=== PATIENT | female | born 1945 | race Caucasian/White ===

== ENCOUNTER 2016-10-13 14:26 | Inpatient (IN) | payer OTHER, MEDICARE ==
[~2016-10-13] VITALS: Ht 165.1 cm; Wt 105.9 kg
--- NOTE | 2016-10-20 14:39 | MH ---
cc: Constanza DERAS M.D. DATE OF ADMISSION: 10/25/2016 ADMISSION DIAGNOSIS Osteoarthritic degeneration right knee, now being admitted for right total knee arthroplasty. HISTORY OF PRESENT ILLNESS This pleasant 71-year-old diabetic female is being admitted today for a right total knee arthroplasty due to severe painful osteoarthritic degeneration, right knee. OTHER PAST HISTORY Other past history besides the arthritis, she has a history of: 1. Leukemia in the past. 2. Depression. 3. Diabetes. 4. Hypertension. 5. Low back pain. 6. Heart problems. 7. Thyroid issues. 8. She does have a coronary stent in and 9. She has vascular stent in her leg. CURRENT MEDICATIONS Include: 1. Plavix which she stopped before surgery and is now only on 81 mg of aspirin a day. 2. She also takes clonidine 3. Hydrocodone for pain. 4. Levothyroxine. 5. Lisinopril. 6. Metformin 500 mg every 24 hours. 7. Metoprolol tartrate. 8. Novolog 100 units per mL subcutaneous insulin. 9. Potassium chloride. 10. Pravastatin. 11. Sertraline. 12. Toujeo SoloStar 300 units per mL subcutaneous insulin. PAST SURGICAL HISTORY Previous surgeries include both hip surgeries and cataract surgery. REVIEW OF SYSTEMS Noncontributory. FAMILY HISTORY Noncontributory. SOCIAL HISTORY She does not smoke or drink. ALLERGIES No known allergies. PHYSICAL EXAMINATION GENERAL: We find a 71-year-old female, well-developed, well-nourished, oriented x3, complaining of pain in her right knee. VITAL SIGNS: Blood pressure 118/72, pulse 55 and regular, respirations 16, temperature 98.4, pulse oximetry 97% on room air. HEENT: Eyes PERRLA, EOMI. Ears, nose, mouth clear. NECK: Supple. LUNGS: Clear. HEART: Regular rate. ABDOMEN: Soft. Positive bowel sounds. Nontender. EXTREMITIES: Reveal her right knee to be tender with crepitance throughout range of motion. Neurovascularly intact to her toes. IMPRESSION AT THIS TIME Severe painful osteoarthritic degeneration, right knee. PLAN Admission for right total knee arthroplasty today. The patient given a prescription for postoperative pain control, plans on going to rehab after surgery and we plan on not using a tourniquet as the patient has a stent in her right leg. J. MD AYLA Singh/TLL /2:06 PM /2:18 PM
[2016-10-21] MEDS ORDERED: CLON0.1T PO (14:36)
[2016-10-21] MEDS ORDERED: PLAV75TA29 PO (14:36)
[2016-10-21] MEDS ORDERED: ASPI1TAB69 PO (14:36)
[2016-10-21] MEDS ORDERED: MULTCAP PO (14:53)
[2016-10-21] MEDS ORDERED: LEVO-154 PO (14:53)
[2016-10-21] MEDS ORDERED: POTA10TA8 PO (14:53)
[2016-10-21] MEDS ORDERED: OMEG5CAP PO (14:53)
[2016-10-21] MEDS ORDERED: PANT40TA3 PO (14:53)
[2016-10-21] MEDS ORDERED: METF1000 PO (14:53)
[2016-10-21] MEDS ORDERED: LISI20TA PO (14:53)
[2016-10-21] MEDS ORDERED: VITA100018 PO (14:53)
[2016-10-21] MEDS ORDERED: BIOT1000 PO (14:53)
[2016-10-21] MEDS ORDERED: METO50TA PO (14:53)
[2016-10-21] MEDS ORDERED: INSU1.2I SQ (14:53)
[2016-10-21] MEDS ORDERED: HUMA100I3 SQ ×3 (14:53→15:29)
[2016-10-21] MEDS ORDERED: PRAV40TA2 PO (14:53)
[2016-10-21] MEDS ORDERED: SERT-132 PO (14:53)
[2016-10-21] MEDS ORDERED: VITA10007 PO (14:53)
[2016-10-25] MEDS ORDERED: INSULIN HUMAN REGULAR 1,000 UNITS/10 ML VIAL SQ PRN (06:15)
[2016-10-25] MEDS: CHLORHEXIDINE GLUCONATE 4% SOLN 120 ML BTL TOP SCH (06:15)
[2016-10-25] MEDS ORDERED: METOPROLOL TARTRATE 25 MG TAB PO PRN (06:15)
[2016-10-25] MEDS ORDERED: VANCOMYCIN 1000 MG/NS 250 ML (for <70 kg) IV SCH ×2 (06:15)
[2016-10-25 06:46] VITALS: BP 189/85; PULSE 55; RESP 16; TEMP 98.9; O2SAT 95
[2016-10-25] MEDS ORDERED: ceFAZolin 2 GM PREMIX 50 ML IV SCH (07:00)
[2016-10-25] MEDS ORDERED: MIDAZOLAM HCL 5 MG/5 ML VIAL ONE (07:15)
[2016-10-25] MEDS ORDERED: BUPIVACAINE LIPOSO PF 1.3% INJ 20 ML, BUPIVACAINE PF 0.25% INJ 20 ML in SODIUM CHLORIDE... P-ARTICULR SCH (07:30)
[2016-10-25] MEDS ORDERED: BUPIVACAINE HCL PF 0.5% 30 ML VIAL NB ONE (07:49)
[2016-10-25] MEDS ORDERED: LACTATED RINGER'S 1000 ML IV SCH (08:00)
[2016-10-25] MEDS ORDERED: SODIUM CHLORID 0.9% 500 ML IV SCH (08:00)
[2016-10-25] MEDS ORDERED: TRANEXAMIC ACID INJ 906 MG in SODIUM CHLORIDE 0.9% INJ 100 ML IV SCH ×2 (08:00→11:00)
[2016-10-25] MEDS ORDERED: ACETAMINOPHEN 1000 MG/100 ML VIAL IV ONE (08:06)
[2016-10-25] MEDS ORDERED: FAMOTIDINE 20 MG/2 ML VIAL ONE (08:06)
[2016-10-25] MEDS ORDERED: ceFAZolin INJ 1,000 MG VIAL XX ONE (08:55)
[2016-10-25] MEDS ORDERED: NALOXONE HCL 0.4 MG/ML AMP IV PRN ×2 (10:45)
[2016-10-25] MEDS ORDERED: SODIUM CHLORIDE 0.9% FLUSH 5 ML FLUSH IVF PRN (10:45)
[2016-10-25] MEDS ORDERED: TRANEXAMIC ACID INJ 0 MG in SODIUM CHLORIDE 0.9% INJ 100 ML IV SCH (10:45)
[2016-10-25] MEDS ORDERED: diphenhydrAMINE HCL 50 MG/ML VIAL IV PRN (10:45)
[2016-10-25] MEDS ORDERED: Post-op Orders (for Pharmacy) MISC XX ONE (10:45)
[2016-10-25] MEDS ORDERED: MISC-163 (10:49)
[2016-10-25] MEDS ORDERED: WALKER WHEELS/F1 MIS (10:49)
[2016-10-25] MEDS ORDERED: CPMMACHINE (10:49)
[2016-10-25] MEDS ORDERED: fentaNYL CITRATE 250 MCG/5 ML AMP ONE (11:10)
[2016-10-25] MEDS ORDERED: *PROMETHAZINE 25 MG/ML VIAL PERIprocedural use ONLY ONE (11:13)
[2016-10-25] MEDS ORDERED: *morphine SULFATE 8 MG/ML PERIprocedure ONLY ONE (11:27)
[2016-10-25] MEDS ORDERED: DO NOT ADM ANY ANTICOAGULANT DRUGS XX PRN (11:30)
[2016-10-25] MEDS ORDERED: *ONDANSETRON 4 MG VIAL PERIprocedural Use ONLY ONE (11:34)
[2016-10-25] MEDS: MORPHINE SULFATE 30 MG/30 ML PCA IV SCH (11:36)
[2016-10-25] MEDS: LACTATED RINGER'S 1000 ML INJ 1,000 ML IV SCH ×2 (11:36→23:12)
--- NOTE | 2016-10-25 11:51 | RADRPT ---
EXAM DATE/TIME: 10/25/2016 11:20 [place] COMPARISON: No previous studies available for comparison. INDICATIONS : Post total right knee MEDICAL HISTORY : None. SURGICAL HISTORY : Total right knee ENCOUNTER: Initial ACUITY: 1 day PAIN SCORE: 9/10 LOCATION: Right knee FINDINGS: Two view examination of the right knee demonstrates postop changes following total knee replacement. Patellar, femoral and tibial components are well seated and appear satisfactorily aligned. There is no evidence of acute fracture. Endovascular stent is identified in the right superficial femoral artery. CONCLUSION: Satisfactory post operative appearance the right knee following total knee replacement. Denzel Wisdom MD on October 25, 2016 at 11:49 Board Certified Radiologist. This report was verified electronically.
[2016-10-25] MEDS ORDERED: DEXAMETHASONE SOD PHOS 4 MG/ML VIAL ONE (11:54)
[2016-10-25] MEDS ORDERED: ONDANSETRON HCL 4 MG/2 ML VIAL IV PUSH ONE (12:00)
[2016-10-25] MEDS ORDERED: ePHEDrine/NS 25 MG/5 ML SYR IV ONE (12:00)
[2016-10-25] MEDS ORDERED: PHENYLEPH/NS 1000 MCG/10 ML SYR IV ONE (12:00)
[2016-10-25] MEDS ORDERED: LACTATED RINGER'S 1000 ML INJ 1,000 ML IV ONE (12:00)
[2016-10-25] MEDS ORDERED: NEOSTIGMINE 3 MG/3 ML SYR IV ONE (12:00)
[2016-10-25] MEDS ORDERED: PROPOFOL 200 MG/20 ML AMP IV ONE (12:00)
[2016-10-25] MEDS ORDERED: SODIUM CHLORID 0.9% 500 ML INJ 500 ML IV ONE (12:00)
[2016-10-25 12:30] VITALS: BP 109/62; PULSE 55; RESP 16; TEMP 95.8; O2SAT 91
[2016-10-25] MEDS ORDERED: METOCLOPRAMIDE HCL 10 MG/2 ML VIAL IV ONE (12:30)
[2016-10-25] MEDS ORDERED: DEXAMETHASONE SOD PHOS 4 MG/ML VIAL IV ONE (12:30)
[2016-10-25] MEDS: POTASSIUM CHLORIDE 10 MEQ CONTROLLED RELEASE TAB PO SCH ×2 (13:00→16:25)
[2016-10-25] MEDS: PCA - TOTAL MG MORPHINE DELIVERED PER SHIFT SCH ×2 (14:00→22:00)
[2016-10-25] MEDS: ONDANSETRON HCL 4 MG/2 ML VIAL IVP PRN (14:26)
[2016-10-25] MEDS: ACETAMINOPHEN/HYDROcodone 325 MG/7.5 MG TAB PO PRN (14:26)
[2016-10-25] MEDS ORDERED: DEXTROSE 50% IN WATER 50 ML VIAL(D50) IV PUSH PRN (15:00)
[2016-10-25] MEDS ORDERED: GLUCAGON 1 MG/ML VIAL OTHER PRN (15:00)
--- NOTE | 2016-10-25 15:02 | EKG ---
Date Performed: 10/25/2016 Time Performed: 06:25:07 PTAGE: 71 years EKG: SINUS BRADYCARDIA LOW QRS VOLTAGE IN PRECORDIAL LEADS ST DEVIATION AND MODERATE T-WAVE ABNO RMALITY, CONSIDER ANTEROLATERAL ISCHEMIA ABNORMAL ECG Compared to prior tracing no significant change PREVIOUS TRACING : 08/25/2013 21.26 DOCTOR: Dorcas Stock Interpretating Date/Time 10/25/2016 14:54:41
--- NOTE | 2016-10-25 15:14 | PD.CONS ---
HPI Service [facility] Consult Requested By Dr. Woodall Reason for Consult medical management Primary Care Physician Sarah Grove Do, MD Diagnoses: History of Present Illness 71 y/o F with Pmhx of T2DM insulin dependent, CAD, and HTN who p/w severe osteoarthritis and had right total knee arthroplasty. [facility] consulted for medical management. Patient seen after surgery and is sitting up at bedside working with PT. Patient stated she is doing well and asking for a peanut butter and jelly sandwich from PT. Otherwise no complaints. Pain is controlled. Review of Systems Constitutional: DENIES: Diaphoretic episodes, Fatigue, Fever, Weight gain, Weight loss, Chills, Dizziness, Change in appetite, Night Sweats Endocrine: DENIES: Abnorml menstrual pattern, Heat/cold intolerance, Polydipsia , Polyuria, Polyphagia Eyes: DENIES: Blurred vision, Diplopia, Eye inflammation, Eye pain, Vision loss , Photosensitivity, Double Vision Ears, nose, mouth, throat: DENIES: Tinnitus, Hearing loss, Vertigo, Nasal discharge, Oral lesions, Throat pain, Hoarseness, Ear Pain, Running Nose, Epistaxis, Sinus Pain, Toothache, Odynophagia Respiratory: DENIES: Apneas, Cough, Snoring, Wheezing, Hemoptysis, Sputum production, Shortness of breath Cardiovascular: DENIES: Chest pain, Palpitations, Syncope, Dyspnea on Exertion , PND, Lower Extremity Edema, Orthopnea, Claudication Gastrointestinal: DENIES: Abdominal pain, Black stools, Bloody stools, Constipation, Diarrhea, Nausea, Vomiting, Difficulty Swallowing, Anorexia Genitourinary: DENIES: Abnormal vaginal bleeding, Dysmenorrhea, Dyspareunia, Sexual dysfunction, Urinary frequency, Urinary incontinence, Urgency, Hematuria , Dysuria, Nocturia, Vaginal discharge Musculoskeletal: DENIES: Joint pain, Muscle aches, Stiffness, Joint Swelling, Back pain, Neck pain Integumentary: DENIES: Abnormal pigmentation, Pruritus, Rash, Nail changes, Breast masses, Breast skin changes, Nipple discharge Hematologic/lymphatic: DENIES: Bruising, Lymphadenopathy Immunologic/allergic: DENIES: Eczema, Urticaria Neurologic: DENIES: Abnormal gait, Headache, Localized weakness, Paresthesias, Seizures, Speech Problems, Tremor, Poor Balance Psychiatric: DENIES: Anxiety, Confusion, Mood changes, Depression, Hallucinations, Agitation, Suicidal Ideation, Homicidal Ideation, Delusions Past Family Social History Allergies: Coded Allergies: No Known Allergies (Verified , 10/25/16) Past Medical History CAD HTN T2DM insulin dependent leukemia Past Surgical History cataracts pancreatic pseudocyst removal cardiac stent placement Reported Medications Humalog Kwikpen Pen Inj (Insulin Lispro (Human) Inj) 300 Unit/3 Ml Pen Unknown Dose SQ AC DINNER 16 UNITS IF BS 80-150 151-200 18 UNITS 201-251 20 UNITS 251-300 22 UNITS Humalog Kwikpen Pen Inj (Insulin Lispro (Human) Inj) 300 Unit/3 Ml Pen Unknown Dose SQ AC LUNCH LUNCH 4 UNITS UNITS IF BS 80-150 151-200 6 UNITS 201-251 8 UNITS 251-300 10 UNITS Vitamin C (Ascorbic Acid) 1,000 Mg Tab 1,000 Mg PO DAILY Vitamin D3 (Cholecalciferol) 1,000 Unit Tab 1,000 Units PO DAILY Multi For Her (Multiple Vitamins W/ Minerals) 1 Cap Cap 1 Cap PO DAILY Biotin 1,000 Mcg Tab 1,000 Mg PO DAILY Fish Oil 1200 mg ([place]-3 Fatty Acids) 1 Cap Cap 2 Cap PO DAILY Toujeo Solostar Pen Inj (Insulin Glargine) 300 Unit/Ml Pen 30 Units SQ HS Humalog Kwikpen Pen Inj (Insulin Lispro (Human) Inj) 300 Unit/3 Ml Pen Unknown Dose SQ AC BREAKFAST BREAKFAST 10 UNITS IF BS 80-150 151-200 12 UNITS 201-251 14 UNITS 251-300 16 UNITS DINNER 16 Sertraline (Sertraline HCl) 50 Mg Tab 50 Mg PO BID Pravastatin 40 Mg Tab 40 Mg PO DAILY Potassium Chloride CR (Potassium Chloride) 10 Meq Tab 10 Meq PO TID Pantoprazole (Pantoprazole Sodium) 40 Mg Tab 40 Mg PO DAILY Metoprolol Tartrate 50 Mg Tab 50 Mg PO BID Metformin (Metformin HCl) 1,000 Mg Tab 1,000 Mg PO BIDPC With meals Lisinopril-Hctz 20-12.5 Mg Tab 1 Tab PO BID Levothyroxine (Levothyroxine Sodium) 175 Mcg Tab 175 Mcg PO DAILY Plavix (Clopidogrel Bisulfate) 75 Mg Tab 75 Mg PO DAILY Clonidine (Clonidine HCl) 0.1 Mg Tab 0.1 Mg PO BID Aspirin 81 Mg Tabdr 81 Mg PO BID Active Ordered Medications Current Medications Lactated Ringer's 1,000 ml @ 30 mls/hr Q24H IV Last administered on 10/25/16 06:30; Start 10/25/16 at 08:00; Stop 10/25/16 at 11:38; Status DC Sodium Chloride (NS 500 ml Inj) 500 ml @ 30 mls/hr [id number] IV ; Start 10/25/16 at 08:00; Stop 10/25/16 at 11:38; Status DC Insulin Human Regular (NovoLIN R INJ) See Protocol Table ... UNSCH X1 PRN SQ SEE PROTOCOL Last administered on 10/25/16 06:42; Start 10/25/16 at 06:15; Stop 10/26/16 at 06:14 Metoprolol Tartrate (Lopressor) 25 mg UNSCH X1 PRN PO SEE LABEL COMMENTS; Start 10/25/16 at 06:15; Stop 10/26/16 at 06:14 Chlorhexidine Gluconate 1 applic 1 applic ONCE TOP ; Start 10/25/16 at 06:15; Stop 10/28/16 at 06:14 Cefazolin Sodium/ Dextrose 50 ml @ 100 mls/hr [employer] IV Last administered on 10/25/16 08:31; Start 10/25/16 at 07:00; Stop 10/26/16 at 06:59 Vancomycin HCl 1000 mg/Sodium Chloride 250 ml @ 250 mls/hr [employer] IV Last administered on 10/25/16 06:46; Start 10/25/16 at 06:15; Stop 10/26/16 at 06:14 Tranexamic Acid 906 mg/Sodium Chloride 109.06 ml @ 200 mls/ hr ONCE IV Last administered on 10/25/16 08:23; Start 10/25/16 at 08:00; Stop 10/25/16 at 14:00 ; Status DC Tranexamic Acid/ Sodium Chloride (Cyklokapron Inj/ NS Inj) 109.06 ml @ 200 mls / hr ONCE IV Last administered on 10/25/16 11:36; Start 10/25/16 at 11:00; Stop 10/25/16 at 17:00 Midazolam HCl 5 mg 5 mg STK-MED ONCE .ROUTE Last administered on 10/25/16 07: 26; Start 10/25/16 at 07:15; Stop 10/25/16 at 07:16; Status DC Bupivacaine Liposome/ Bupivacaine HCl/ Sodium Chloride (Exparel Pf 1.3% Inj/ Marcaine Pf 0.25% Inj/NS Inj) 140 ml @ 240 mls/hr ONCE P-ARTICULR ; Start 10/25 at 07:30; Stop 10/25/16 at 12:34; Status DC Acetaminophen (Ofirmev Inj) 1,000 mg STK-MED ONCE IV ; Start 10/25/16 at 08:06; Stop 10/25/16 at 08:07; Status DC Famotidine (Pepcid Inj) 20 mg STK-MED ONCE .ROUTE ; Start 10/25/16 at 08:06; Stop 10/25/16 at 08:07; Status DC Cefazolin Sodium 1000 mg 1,000 mg STK-MED ONCE XX Last administered on 08:55; Start 10/25/16 at 08:55; Stop 10/25/16 at 09:09; Status DC Lactated Ringer's (Lr 1000 ml Inj) 1,000 ml @ 80 mls/hr [id number] IV Last administered on 10/25/16 11:36; Start 10/25/16 at 10:42 IV Flush (NS Flush) 2 ml UNSCH PRN IVF FLUSH AFTER USING IV ACCESS; Start 10/25 at 10:45 IV Flush 2 ml 2 ml BID IVF ; Start 10/25/16 at 21:00 Cefazolin Sodium/ Sodium Chloride (Ancef Inj/NS Inj) 100 ml @ 200 mls/hr Q6H IV Last administered on 10/25/16 14:26; Start 10/25/16 at 15:00; Stop at 03:29 Miscellaneous Information (Post-op Orders (for Pharmacy)) STAT ONCE XX ; Start 10/25/16 at 10:45; Stop 10/25/16 at 11:44; Status DC Enoxaparin Sodium (Lovenox Inj) 30 mg Q12H SQ ; Start 10/26/16 at 10:00 Acetaminophen/ Hydrocodone Bitart ([place]lew 7.5-325 Mg) 1 tab Q4H PRN PO PAIN LESS THAN 5 ON SCALE Last administered on 10/25/16 14:26; Start 10/25/16 at 10: 45 Acetaminophen/ Hydrocodone Bitart ([place]lew 7.5-325 Mg) 2 tab Q4H PRN PO PAIN SCALE 5 TO 10; Start 10/25/16 at 10:45 Acetaminophen 650 mg 650 mg Q6H PRN PO temp over 101; Start 10/25/16 at 10:45 Tranexamic Acid/ Sodium Chloride (Cyklokapron Inj/ NS Inj) 100 ml @ 200 mls/hr UNSCH IV ; Start 10/25/16 at 10:45; Stop 10/25/16 at 11:14; Status UNV Multivitamins/ Minerals Therapeutic (Theragran M Tab) 1 tab BID PO ; Start 10/26 at 21:00; Stop 12/25/16 at 20:59 Ondansetron HCl (Zofran Inj) 4 mg Q6H PRN IVP NAUSEA OR VOMITING Last administered on 10/25/16t 14:26; Start 10/25/16 at 10:45 Docusate Sodium (Colace) 100 mg BID PO ; Start 10/26/16 at 21:00 Temazepam (Restoril) 15 mg HS PRN PO SLEEP; Start 10/25/16 at 21:00 Bacitracin (Bacitracin Oint Packet) 0.9 gm UNSCH X1 PRN TOP WOUND CARE; Start 10/27/16 at 10:15; Stop 10/29/16 at 10:14 Naloxone HCl (Narcan Inj) 0.4 mg UNSCH PRN IV RESPIRATORY RATE LESS THAN 10; Start 10/25/16 at 10:45 Diphenhydramine HCl (Benadryl Inj) 25 mg Q6H PRN IV ITCHING; Start 10/25/16 at 10:45 Morphine Sulfate (Morphine 1 Mg/ ml [employer]) 30 mg UNSCH IV Last administered on t 11:36; Start 10/25/16 at 10:45 [employer] Dosage Infused (Pha) 1 Q8HR .XX ; Start 10/25/16 at 14:00 Naloxone HCl (Narcan Inj) 0.4 mg UNSCH PRN IV RESPIRATORY RATE LESS THAN 10; Start 10/25/16 at 10:45; Status UNV Ascorbic Acid (Vitamin C) 1,000 mg DAILY PO ; Start 10/26/16 at 09:00 Aspirin (Ecotrin Ec) 81 mg BID PO ; Start 10/25/16 at 21:00 Cholecalciferol (Vitamin D3) 1,000 units DAILY PO ; Start 10/26/16 at 09:00 Clonidine (Catapres) 0.1 mg BID PO ; Start 10/25/16 at 21:00 Metformin HCl (Glucophage) 1,000 mg BIDPC PO ; Start 10/25/16 at 18:00 Metoprolol Tartrate (Lopressor) 50 mg BID PO ; Start 10/25/16 at 21:00 Pantoprazole Sodium (Protonix) 40 mg DAILY PO ; Start 10/26/16 at 09:00 Potassium Chloride (KCl) 10 meq TID PO ; Start 10/25/16 at 13:00 Pravastatin Sodium (Pravachol) 40 mg DAILY PO ; Start 10/26/16 at 09:00 Sertraline HCl (Zoloft) 50 mg BID PO ; Start 10/25/16 at 21:00 Non-Formulary Medication 1,000 mg DAILY PO ; Start 10/26/16 at 09:00; Stop 10/26 at 09:00; Status DC Patient Own Medication PT OWN MED: KIMBERLEY CAMPUZANO ... HS SQ ; Start 10/25/16 at 21:00; Status Future Hold Levothyroxine Sodium (Synthroid) 150 mcg DAILY@06 PO ; Start 10/26/16 at 06:00 Non-Formulary Medication 1 tab BID PO BPM; Start 10/25/16 at 21:00; Status UNV Non-Formulary Medication 1 cap DAILY PO ; Start 10/26/16 at 09:00; Status UNV Non-Formulary Medication 2 cap DAILY PO ; Start 10/26/16 at 09:00; Stop at 09:00; Status DC Fentanyl Citrate (fentaNYL INJ) 100 mcg STK-MED ONCE .ROUTE ; Start 10/25/16 at 11:10; Stop 10/25/16 at 11:11; Status DC Fentanyl Citrate (fentaNYL INJ) 250 mcg STK-MED ONCE .ROUTE ; Start 10/25/16 at 11:10; Stop 10/25/16 at 11:11; Status DC Promethazine HCl (*PHENERGAN INJ PERIprocedural ONLY) 25 mg STK-MED ONCE .ROUTE Last administered on 10/25/16t 11:13; Start 10/25/16 at 11:13; Stop 10/25/16 at 11:14; Status DC Miscellaneous Information ALL NURSING DEPARTME... UNSCH PRN XX SEE LABEL COMMENTS; Start 10/25/16 at 11:30; Stop 10/26/16 at 11:29 Morphine Sulfate (*morphine INJ PERIprocedure ONLY) 8 mg STK-MED ONCE .ROUTE Last administered on 10/25/16 11:27; Start 10/25/16 at 11:27; Stop 10/25/16 at 11:28; Status DC Ondansetron HCl (*ZOFRAN INJ PERIprocedural ONLY) 4 mg STK-MED ONCE .ROUTE Last administered on 10/25/16 11:36; Start 10/25/16 at 11:34; Stop 10/25/16 at 11:35; Status DC Dexamethasone Sodium Phosphate (Decadron Inj) 4 mg STK-MED ONCE .ROUTE Last administered on 10/25/16 11:54; Start 10/25/16 at 11:54; Stop 10/25/16 at 11:55 ; Status DC Dexamethasone Sodium Phosphate (Decadron Inj) 4 mg NOW ONCE IV ; Start at 12:30; Stop 10/25/16 at 12:34; Status DC Metoclopramide HCl (Reglan Inj) 10 mg ONCE ONCE IV ; Start 10/25/16 at 12:30; Stop 10/25/16 at 12:34; Status DC Lisinopril (Prinivil) 20 mg BID PO ; Start 10/25/16 at 21:00 Hydrochlorothiazide (Hydrodiuril) 12.5 mg BID PO ; Start 10/25/16 at 21:00 Levothyroxine Sodium (Synthroid) 25 mcg DAILY@06 PO ; Start 10/26/16 at 06:00 Dextrose (D50w (Vial) Inj) 25 ml UNSCH PRN IV PUSH HYPOGLYCEMIA-SEE COMMENTS; Start 10/25/16 at 15:00; Status UNV Glucagon (Glucagon Inj) 1 mg UNSCH PRN OTHER HYPOGLYCEMIA-SEE COMMENTS; Start 10/25/16 at 15:00; Status UNV Insulin Aspart (NovoLOG SUPPLEMENTAL SCALE) 1 ACHS SLIDING SCALE SQ ; Start at 16:00; Status UNV Insulin Detemir (Levemir Inj) 20 units HS SQ ; Start 10/25/16 at 21:00; Status UNV Family History noncontributory Social History lives with her denied any alcohol, tobacco, or illicit drug use. Physical Exam Vital Signs Vital Signs Date Time Temp Pulse Resp B/P Pulse Ox O2 Delivery O2 Flow Rate FiO2 10/25/16 12:15 55 12 134/64 93 Nasal Cannula 2 10/25/16 12:00 59 12 121/69 93 Nasal Cannula 2 10/25/16 11:45 76 14 115/71 96 Nasal Cannula 2 10/25/16 11:36 14 10/25/16 11:30 56 14 107/60 94 Nasal Cannula 2 10/25/16 11:15 57 14 119/63 94 Nasal Cannula 2 10/25/16 11:04 96.8 70 14 102/60 95 Simple Mask 5 10/25/16 06:46 98.9 55 16 189/85 95 Physical Exam GENERAL: This is a well-nourished, well-developed patient, in no apparent distress. SKIN: No rashes, ecchymoses or lesions. Cool and dry. HEAD: Atraumatic. Normocephalic. No temporal or scalp tenderness. EYES: Pupils equal round and reactive. Extraocular motions intact. No scleral icterus. No injection or drainage. ENT: Nose without bleeding, purulent drainage or septal hematoma. Throat without erythema, tonsillar hypertrophy or exudate. Uvula midline. Airway patent. NECK: Trachea midline. No JVD or lymphadenopathy. Supple, nontender, no meningeal signs. CARDIOVASCULAR: Regular rate and rhythm without murmurs, gallops, or rubs. RESPIRATORY: Clear to auscultation. Breath sounds equal bilaterally. No wheezes , rales, or rhonchi. GASTROINTESTINAL: Abdomen soft, non-tender, nondistended. No hepato-splenomegaly , or palpable masses. No guarding. MUSCULOSKELETAL: right knee in bandages. Negative Homans sign bilaterally. NEUROLOGICAL: Awake and alert. Cranial nerves II through XII intact. Motor and sensory grossly within normal limits. Five out of 5 muscle strength in all muscle groups. Normal speech. Laboratory Laboratory Tests Test 10/25/16 06:40 Blood Type A NEGATIVE Antibody Screen NEGATIVE Blood Bank Comment Assessment and Plan Assessment and Plan Severe right knee ostearthritis -right total knee arthroplasty done today by Dr. Woodall. -being management by Dr. Woodall. CAD/HT/hypothyroidism -home medication was restarted except for plavix. -when okay with surgery resume plavix. T2DM insulin -Toujeo not on formulary. -will give Levemir -start in SSI. -continue to monitor and adjust accordingly. DVT prophylaxis -lovenox Code Status full Discussed Condition With patient and her Danielle Osborn MD Oct 25, 2016 15:14
[2016-10-25 16:00] VITALS: BP 139/75; PULSE 66; RESP 18; TEMP 96.9; O2SAT 96
[2016-10-25] MEDS: INSULIN ASPART SUPPLEMENTAL SCALE SQ SCH ×2 (16:00→21:19)
[2016-10-25] MEDS: metFORMIN HCL 500 MG TAB PO SCH (16:22)
[2016-10-25 20:00] VITALS: BP 146/65; PULSE 76; RESP 16; TEMP 99; O2SAT 94
[2016-10-25] MEDS: SODIUM CHLORIDE 0.9% FLUSH 5 ML FLUSH IVF SCH (21:00)
[2016-10-25] MEDS ORDERED: TOUJEO 300 UNIT/ML SQ SCH (21:00)
[2016-10-25] MEDS ORDERED: TEMAZEPAM 15 MG CAP PO PRN (21:00)
[2016-10-25] MEDS ORDERED: INSULIN DETEMIR 100 UNITS/ML VIAL SQ SCH (21:00)
[2016-10-25] MEDS ORDERED: NON-FORMULARY DRUG (Lisinopril-Hctz 1 TAB) PO SCH (21:00)
[2016-10-25] MEDS: SERTRALINE HCL 50 MG TAB PO SCH (21:08)
[2016-10-25] MEDS: cloNIDine HCL 0.1 MG TAB PO SCH (21:09)
[2016-10-25] MEDS: METOPROLOL TARTRATE 50 MG TAB PO SCH (21:09)
[2016-10-25] MEDS: ASPIRIN EC 81 MG TABEC PO SCH (21:09)
[2016-10-25] MEDS: HYDROCHLOROTHIAZIDE 25 MG TAB PO SCH (21:09)
[2016-10-25] MEDS: LISINOPRIL 20 MG TAB PO SCH (21:18)
[2016-10-26] VITALS (9 sets, daily range): BP systolic 102–163; BP diastolic 58–96; PULSE 61–95; RESP 16–19; TEMP 99.2–101.6; O2SAT 91–98
[2016-10-26] MEDS: CHLORHEXIDINE GLUCONATE 4% SOLN 120 ML BTL TOP SCH (03:34)
[2016-10-26] MEDS: MORPHINE SULFATE 30 MG/30 ML PCA IV SCH (04:04)
[2016-10-26] MEDS: PCA - TOTAL MG MORPHINE DELIVERED PER SHIFT SCH (05:18)
[2016-10-26] MEDS: ONDANSETRON HCL 4 MG/2 ML VIAL IVP PRN ×2 (05:27→11:44)
[2016-10-26] MEDS: LEVOTHYROXINE SODIUM 25 MCG TAB PO SCH (05:27)
[2016-10-26] MEDS: LEVOTHYROXINE SODIUM 150 MCG TAB PO SCH (05:27)
[2016-10-26 06:21] LABS: HEMATOCRIT 28.2 % (35.0-46.0); REVIEW FLAG FINAL
[2016-10-26] MEDS: INSULIN ASPART SUPPLEMENTAL SCALE SQ SCH ×4 (06:28→20:12)
[2016-10-26] MEDS: metFORMIN HCL 500 MG TAB PO SCH ×2 (08:22→18:00)
[2016-10-26] MEDS: SERTRALINE HCL 50 MG TAB PO SCH ×2 (08:22→20:10)
[2016-10-26] MEDS: ASCORBIC ACID 500 MG TAB PO SCH (08:23)
[2016-10-26] MEDS: PANTOPRAZOLE SOD 40 MG DELAYED RELEASE TAB PO SCH (08:23)
[2016-10-26] MEDS: CHOLECALCIFEROL (VIT D3) 1000 UNIT TAB PO SCH (08:24)
[2016-10-26] MEDS: ACETAMINOPHEN/HYDROcodone 325 MG/7.5 MG TAB PO PRN ×3 (08:24→20:10)
[2016-10-26] MEDS: LISINOPRIL 20 MG TAB PO SCH ×2 (08:24→20:09)
[2016-10-26] MEDS: HYDROCHLOROTHIAZIDE 25 MG TAB PO SCH ×2 (08:24→20:10)
[2016-10-26] MEDS: cloNIDine HCL 0.1 MG TAB PO SCH ×2 (08:24→20:10)
[2016-10-26] MEDS: POTASSIUM CHLORIDE 10 MEQ CONTROLLED RELEASE TAB PO SCH ×3 (08:25→20:09)
[2016-10-26] MEDS: SODIUM CHLORIDE 0.9% FLUSH 5 ML FLUSH IVF SCH ×2 (08:25→20:09)
[2016-10-26] MEDS: PRAVASTATIN SOD 40 MG TAB PO SCH (08:25)
[2016-10-26] MEDS: ASPIRIN EC 81 MG TABEC PO SCH ×2 (08:25→22:35)
[2016-10-26] MEDS: METOPROLOL TARTRATE 50 MG TAB PO SCH ×2 (08:25→20:11)
[2016-10-26] MEDS ORDERED: OMEGA PO SCH (09:00)
[2016-10-26] MEDS ORDERED: MINERALS PO SCH (09:00)
[2016-10-26] MEDS ORDERED: FATTY ACIDS PO SCH (09:00)
[2016-10-26] MEDS ORDERED: NON-FORMULARY DRUG (Biotin 1,000 MG) PO SCH (09:00)
[2016-10-26] MEDS ORDERED: MULTIPLE VITAMINS PO SCH (09:00)
[2016-10-26] MEDS: ACETAMINOPHEN 325 MG TAB PO PRN ×2 (10:33→20:11)
[2016-10-26] MEDS: ENOXAPARIN SODIUM 30 MG/0.3 ML SYRINGE SQ SCH ×2 (10:34→20:12)
[2016-10-26] MEDS: LACTATED RINGER'S 1000 ML INJ 1,000 ML IV SCH ×2 (11:42→22:37)
--- NOTE | 2016-10-26 11:44 | PD.ORT.PN ---
Subjective Subjective Remarks patient basically comfortable, some pain behind knee. Objective Vitals Vital Signs Date Time Temp Pulse Resp B/P Pulse Ox O2 Delivery O2 Flow Rate FiO2 10/26/16 09:58 92 Nasal Cannula 2.00 10/26/16 08:00 101.0 95 16 137/79 96 10/26/16 05:18 18 10/26/16 04:04 18 10/26/16 04:00 100.6 73 17 163/72 95 10/26/16 00:00 99.2 71 16 129/58 98 10/25/16 20:00 99.0 76 16 146/65 94 10/25/16 16:00 96.9 66 18 139/75 96 10/25/16 12:45 97.6 55 12 123/69 96 Nasal Cannula 2 10/25/16 12:30 55 12 116/67 94 Nasal Cannula 2 10/25/16 12:30 95.8 55 16 109/62 91 10/25/16 12:15 55 12 134/64 93 Nasal Cannula 2 10/25/16 12:00 59 12 121/69 93 Nasal Cannula 2 10/25/16 11:45 76 14 115/71 96 Nasal Cannula 2 I/O 10/25/16 10/25/16 10/25/16 10/26/16 10/26/16 10/26/16 07:00 15:00 23:00 07:00 15:00 23:00 Intake Total 2414 ml 240 ml 1866 ml Output Total 200 ml Balance 2214 ml 240 ml 1866 ml Intake Oral 480 ml 240 ml 480 ml IV Total 534 ml 1386 ml Other 1400 ml Output Estimated Blood Loss 200 ml # Voids 3 1 1 # Bowel Movements 0 0 0 Result Diagram: 10/26/16 0546 Objective Remarks dressing dry and intact. Sitting up in chair. Assessment & Plan Ortho Post Op Day #: 1 Problem List: Assessment and Plan OOB, PT, wound care, medical management. Constanza Woodall MD Oct 26, 2016 11:44
[2016-10-26] MEDS ORDERED: HYDR-3580 PO (11:46)
--- NOTE | 2016-10-26 12:25 | HHI.PR ---
Subjective Remarks f/u for right kneed arthroplasty patient stated she is doing well. pain is controlled. c/o hanging nail and asking for clippers. nurse at bedside. Objective Vitals Vital Signs Date Time Temp Pulse Resp B/P Pulse Ox O2 Delivery O2 Flow Rate FiO2 10/26/16 09:58 92 Nasal Cannula 2.00 10/26/16 08:00 101.0 95 16 137/79 96 10/26/16 05:18 18 10/26/16 04:04 18 10/26/16 04:00 100.6 73 17 163/72 95 10/26/16 00:00 99.2 71 16 129/58 98 10/25/16 20:00 99.0 76 16 146/65 94 10/25/16 16:00 96.9 66 18 139/75 96 10/25/16 12:45 97.6 55 12 123/69 96 Nasal Cannula 2 10/25/16 12:30 55 12 116/67 94 Nasal Cannula 2 10/25/16 12:30 95.8 55 16 109/62 91 I/O 10/25/16 10/25/16 10/25/16 10/26/16 10/26/16 10/26/16 07:00 15:00 23:00 07:00 15:00 23:00 Intake Total 2414 ml 240 ml 1866 ml 227 ml Output Total 200 ml Balance 2214 ml 240 ml 1866 ml 227 ml Intake Oral 480 ml 240 ml 480 ml IV Total 534 ml 1386 ml 227 ml Other 1400 ml Output Estimated Blood Loss 200 ml # Voids 3 1 1 # Bowel Movements 0 0 0 Result Diagram: 10/26/16 0546 Objective Remarks GENERAL: in NAD CARDIOVASCULAR: Regular rate and rhythm without murmurs, gallops, or rubs. RESPIRATORY: Breath sounds equal bilaterally. No accessory muscle use. GASTROINTESTINAL: Abdomen soft, non-tender, nondistended. MUSCULOSKELETAL: No cyanosis, or edema. rigth foot 4th toe nail hanging but no sign of infection. no erythema no TTP. BACK: Nontender without obvious deformity. No CVA tenderness. Medications and IVs Current Medications Lactated Ringer's 1,000 ml @ 30 mls/hr Q24H IV Last administered on 10/25/16t 06:30; Start 10/25/16 at 08:00; Stop 10/25/16 at 11:38; Status DC Sodium Chloride (NS 500 ml Inj) 500 ml @ 30 mls/hr [id number] IV ; Start 10/25/16 at 08:00; Stop 10/25/16 at 11:38; Status DC Insulin Human Regular (NovoLIN R INJ) See Protocol Table ... UNSCH X1 PRN SQ SEE PROTOCOL Last administered on 10/25/16 06:42; Start 10/25/16 at 06:15; Stop 10/26/16 at 06:14; Status DC Metoprolol Tartrate (Lopressor) 25 mg UNSCH X1 PRN PO SEE LABEL COMMENTS; Start 10/25/16 at 06:15; Stop 10/26/16 at 06:14; Status DC Chlorhexidine Gluconate 1 applic 1 applic ONCE TOP ; Start 10/25/16 at 06:15; Stop 10/28/16 at 06:14 Cefazolin Sodium/ Dextrose 50 ml @ 100 mls/hr MACHINE TRACER IV Last administered on 10/25/16 08:31; Start 10/25/16 at 07:00; Stop 10/26/16 at 06:59; Status DC Vancomycin HCl 1000 mg/Sodium Chloride 250 ml @ 250 mls/hr MACHINE TRACER IV Last administered on 10/25/16 06:46; Start 10/25/16 at 06:15; Stop 10/26/16 at 06:14 ; Status DC Tranexamic Acid 906 mg/Sodium Chloride 109.06 ml @ 200 mls/ hr ONCE IV Last administered on 10/25/16 08:23; Start 10/25/16 at 08:00; Stop 10/25/16 at 14:00 ; Status DC Tranexamic Acid/ Sodium Chloride (Cyklokapron Inj/ NS Inj) 109.06 ml @ 200 mls / hr ONCE IV Last administered on 10/25/16 11:36; Start 10/25/16 at 11:00; Stop 10/25/16 at 17:00; Status DC Midazolam HCl 5 mg 5 mg STK-MED ONCE .ROUTE Last administered on 10/25/16 07: 26; Start 10/25/16 at 07:15; Stop 10/25/16 at 07:16; Status DC Bupivacaine Liposome/ Bupivacaine HCl/ Sodium Chloride (Exparel Pf 1.3% Inj/ Marcaine Pf 0.25% Inj/NS Inj) 140 ml @ 240 mls/hr ONCE P-ARTICULR ; Start 10/25 at 07:30; Stop 10/25/16 at 12:34; Status DC Acetaminophen (Ofirmev Inj) 1,000 mg STK-MED ONCE IV ; Start 10/25/16 at 08:06; Stop 10/25/16 at 08:07; Status DC Famotidine (Pepcid Inj) 20 mg STK-MED ONCE .ROUTE ; Start 10/25/16 at 08:06; Stop 10/25/16 at 08:07; Status DC Cefazolin Sodium 1000 mg 1,000 mg STK-MED ONCE XX Last administered on 08:55; Start 10/25/16 at 08:55; Stop 10/25/16 at 09:09; Status DC Lactated Ringer's (Lr 1000 ml Inj) 1,000 ml @ 80 mls/hr [id number] IV Last administered on 10/25/16 23:12; Start 10/25/16 at 10:42 IV Flush (NS Flush) 2 ml UNSCH PRN IVF FLUSH AFTER USING IV ACCESS; Start 10/25 at 10:45 IV Flush 2 ml 2 ml BID IVF Last administered on 10/26/16 08:25; Start at 21:00 Cefazolin Sodium/ Sodium Chloride (Ancef Inj/NS Inj) 100 ml @ 200 mls/hr Q6H IV Last administered on 10/26/16 02:44; Start 10/25/16 at 15:00; Stop at 03:29; Status DC Miscellaneous Information (Post-op Orders (for Pharmacy)) STAT ONCE XX ; Start 10/25/16 at 10:45; Stop 10/25/16 at 11:44; Status DC Enoxaparin Sodium (Lovenox Inj) 30 mg Q12H SQ Last administered on 10/26/16 10 :34; Start 10/26/16 at 10:00 Acetaminophen/ Hydrocodone Bitart ([place] 7.5-325 Mg) 1 tab Q4H PRN PO PAIN LESS THAN 5 ON SCALE Last administered on 10/26/16 08:24; Start 10/25/16 at 10: 45 Acetaminophen/ Hydrocodone Bitart ([place] 7.5-325 Mg) 2 tab Q4H PRN PO PAIN SCALE 5 TO 10; Start 10/25/16 at 10:45 Acetaminophen 650 mg 650 mg Q6H PRN PO temp over 101 Last administered on 10:33; Start 10/25/16 at 10:45 Tranexamic Acid/ Sodium Chloride (Cyklokapron Inj/ NS Inj) 100 ml @ 200 mls/hr UNSCH IV ; Start 10/25/16 at 10:45; Stop 10/25/16 at 11:14; Status UNV Multivitamins/ Minerals Therapeutic (Theragran M Tab) 1 tab BID PO ; Start 10/26 at 21:00; Stop 12/25/16 at 20:59 Ondansetron HCl (Zofran Inj) 4 mg Q6H PRN IVP NAUSEA OR VOMITING Last administered on 10/26/16 11:44; Start 10/25/16 at 10:45 Docusate Sodium (Colace) 100 mg BID PO ; Start 10/26/16 at 21:00 Temazepam (Restoril) 15 mg HS PRN PO SLEEP; Start 10/25/16 at 21:00 Bacitracin (Bacitracin Oint Packet) 0.9 gm UNSCH X1 PRN TOP WOUND CARE; Start 10/27/16 at 10:15; Stop 10/29/16 at 10:14 Naloxone HCl (Narcan Inj) 0.4 mg UNSCH PRN IV RESPIRATORY RATE LESS THAN 10; Start 10/25/16 at 10:45; Stop 10/26/16 at 11:59; Status DC Diphenhydramine HCl (Benadryl Inj) 25 mg Q6H PRN IV ITCHING; Start 10/25/16 at 10:45; Stop 10/26/16 at 11:59; Status DC Morphine Sulfate (Morphine 1 Mg/ ml UNIFIED COMMUNICATIONS ARCHITECT) 30 mg UNSCH IV Last administered on 04:04; Start 10/25/16 at 10:45; Stop 10/26/16 at 11:59; Status DC UNIFIED COMMUNICATIONS ARCHITECT Dosage Infused (Pha) 1 Q8HR .XX Last administered on 10/26/16 05:18; Start 10/25/16 at 14:00; Stop 10/26/16 at 11:59; Status DC Naloxone HCl (Narcan Inj) 0.4 mg UNSCH PRN IV RESPIRATORY RATE LESS THAN 10; Start 10/25/16 at 10:45; Status UNV Ascorbic Acid (Vitamin C) 1,000 mg DAILY PO Last administered on 10/26/16 08: 23; Start 10/26/16 at 09:00 Aspirin (Ecotrin Ec) 81 mg BID PO Last administered on 10/26/16 08:25; Start 10/25/16 at 21:00 Cholecalciferol (Vitamin D3) 1,000 units DAILY PO Last administered on 08:24; Start 10/26/16 at 09:00 Clonidine (Catapres) 0.1 mg BID PO Last administered on 10/26/16 08:24; Start 10/25/16 at 21:00 Metformin HCl (Glucophage) 1,000 mg BIDPC PO Last administered on 10/26/16 08: 22; Start 10/25/16 at 18:00 Metoprolol Tartrate (Lopressor) 50 mg BID PO Last administered on 10/26/16 08: 25; Start 10/25/16 at 21:00 Pantoprazole Sodium (Protonix) 40 mg DAILY PO Last administered on 10/26/16 08 :23; Start 10/26/16 at 09:00 Potassium Chloride (KCl) 10 meq TID PO Last administered on 10/26/16 11:43; Start 10/25/16 at 13:00 Pravastatin Sodium (Pravachol) 40 mg DAILY PO Last administered on 10/26/16 08 :25; Start 10/26/16 at 09:00 Sertraline HCl (Zoloft) 50 mg BID PO Last administered on 10/26/16 08:22; Start 10/25/16 at 21:00 Non-Formulary Medication 1,000 mg DAILY PO ; Start 10/26/16 at 09:00; Stop 10/26 at 09:00; Status DC Patient Own Medication PT OWN MED: TOLYNDSEY ORNELASOSTAR ... HS SQ ; Start 10/25/16 at 21:00; Status Hold Levothyroxine Sodium (Synthroid) 150 mcg DAILY@06 PO Last administered on 05:27; Start 10/26/16 at 06:00 Non-Formulary Medication 1 tab BID PO BPM; Start 10/25/16 at 21:00; Status UNV Non-Formulary Medication 1 cap DAILY PO ; Start 10/26/16 at 09:00; Status UNV Non-Formulary Medication 2 cap DAILY PO ; Start 10/26/16 at 09:00; Stop at 09:00; Status DC Fentanyl Citrate (fentaNYL INJ) 100 mcg STK-MED ONCE .ROUTE ; Start 10/25/16 at 11:10; Stop 10/25/16 at 11:11; Status DC Fentanyl Citrate (fentaNYL INJ) 250 mcg STK-MED ONCE .ROUTE ; Start 10/25/16 at 11:10; Stop 10/25/16 at 11:11; Status DC Promethazine HCl (*PHENERGAN INJ PERIprocedural ONLY) 25 mg STK-MED ONCE .ROUTE Last administered on 10/25/16 11:13; Start 10/25/16 at 11:13; Stop 10/25/16 at 11:14; Status DC Miscellaneous Information ALL NURSING DEPARTME... UNSCH PRN XX SEE LABEL COMMENTS; Start 10/25/16 at 11:30; Stop 10/26/16 at 11:29; Status DC Morphine Sulfate (*morphine INJ PERIprocedure ONLY) 8 mg STK-MED ONCE .ROUTE Last administered on 10/25/16 11:27; Start 10/25/16 at 11:27; Stop 10/25/16 at 11:28; Status DC Ondansetron HCl (*ZOFRAN INJ PERIprocedural ONLY) 4 mg STK-MED ONCE .ROUTE Last administered on 10/25/16 11:36; Start 10/25/16 at 11:34; Stop 10/25/16 at 11:35; Status DC Dexamethasone Sodium Phosphate (Decadron Inj) 4 mg STK-MED ONCE .ROUTE Last administered on 10/25/16 11:54; Start 10/25/16 at 11:54; Stop 10/25/16 at 11:55 ; Status DC Dexamethasone Sodium Phosphate (Decadron Inj) 4 mg NOW ONCE IV ; Start at 12:30; Stop 10/25/16 at 12:34; Status DC Metoclopramide HCl (Reglan Inj) 10 mg ONCE ONCE IV ; Start 10/25/16 at 12:30; Stop 10/25/16 at 12:34; Status DC Lisinopril (Prinivil) 20 mg BID PO Last administered on 10/26/16 08:24; Start 10/25/16 at 21:00 Hydrochlorothiazide (Hydrodiuril) 12.5 mg BID PO Last administered on 08:24; Start 10/25/16 at 21:00 Levothyroxine Sodium (Synthroid) 25 mcg DAILY@06 PO Last administered on 05:27; Start 10/26/16 at 06:00 Dextrose (D50w (Vial) Inj) 25 ml UNSCH PRN IV PUSH HYPOGLYCEMIA-SEE COMMENTS; Start 10/25/16 at 15:00 Glucagon (Glucagon Inj) 1 mg UNSCH PRN OTHER HYPOGLYCEMIA-SEE COMMENTS; Start 10/25/16 at 15:00 Insulin Aspart (NovoLOG SUPPLEMENTAL SCALE) 1 ACHS SLIDING SCALE SQ Last administered on 10/26/16 11:00; Start 10/25/16 at 16:00 Insulin Detemir (Levemir Inj) 20 units HS SQ Last administered on 10/25/16 21: 19; Start 10/25/16 at 21:00 Bupivacaine HCl (Marcaine Pf 0.5% Inj) 20 ml STK-MED ONCE NB ; Start 10/25/16 at 07:49; Stop 10/26/16 at 07:49; Status DC A/P Assessment and Plan Severe right knee ostearthritis -right total knee arthroplasty by Dr. Woodall on 10/26/16. -being management by Dr. Woodall. post op fevers -no signs of infection and clinically doing well. CAD/HT/hypothyroidism -home medication was restarted except for plavix. -when okay with surgery resume plavix. T2DM insulin -Toujeo not on formulary. -BS not controlled so increase levemir to 30 units. -on SSI. -continue to monitor and adjust accordingly. DVT prophylaxis -lovenox Discharge Planning if patient continues to well will go to SNF once cleared by her primary team. Danielle Osborn MD Oct 26, 2016 12:25
[2016-10-26 17:32] LABS: BLOOD GAS CARBOXYHEMOGLOBIN 1.7 % (0-4); BLOOD GAS HCO3 25 mmol/L (22-26); BLOOD GAS METHEMOGLOBIN 0.9 % (0-2); BLOOD GAS O2 HGB SATURATION 96 % (90-100); BLOOD GAS OXYGEN CONTENT 14.2 Vol % (12.0-20.0); BLOOD GAS PCO2 38 mmHg (38-42); BLOOD GAS PO2 129 mmHg (61-120); BLOOD GAS TOTAL HGB 10.3 G/DL (12.0-16.0); CRITICAL VALUE NO; DRAW SITE LT RADIAL; LITER FLOW 15 L/M; NUMBER OF ARTERIAL PUNCTURES 1; STAT YES; TEMP CORR TO 100; ULNAR PULSE PRESENT
[2016-10-26] MEDS ORDERED: CHLORHEXIDINE GLUCONATE 2 % 1 PACK (2 CLOTHS)(extra cloths) TOP PRN (18:30)
--- NOTE | 2016-10-26 19:05 | RADRPT ---
EXAM DATE/TIME: 10/26/2016 17:31 [facility] COMPARISON: CHEST PA & LAT, August 25, 2013, 17:11. INDICATIONS : Short of breath, low sats. MEDICAL HISTORY : None. SURGICAL HISTORY : Right total knee. ENCOUNTER: Initial ACUITY: 2 days PAIN SCORE: 0/10 LOCATION: Bilateral chest FINDINGS: A single view of the chest demonstrates the lungs to be symmetrically aerated without evidence of mas s, confluent infiltrate or effusion. There is mild streaky opacity at both lung bases. Overlying mikie ctrocardiogram leads and oxygen tubing present. The cardiomediastinal contours are unremarkable. Even tration of the right hemidiaphragm is again noted. There are atherosclerotic changes in the aorta. Os seous structures are intact. CONCLUSION: 1. Eventration of the right hemidiaphragm. 2. Mild streaky opacity at both lung bases most consistent with atelectasis. Cain Dewitt MD on October 26, 2016 at 19:02 Board Certified Radiologist. This report was verified electronically.
[2016-10-26 19:42] LABS: AUTOMATED NEUTROPHIL # 8.1 TH/MM3 (1.8-7.7); BASOPHIL # 0.1 TH/MM3 (0-0.2); BASOPHIL % 0.4 % (0.0-2.0); EOSINOPHIL # 0.1 TH/MM3 (0-0.4); EOSINOPHIL % 0.6 % (0.0-4.0); HEMO FLAGS DIFF FINAL; LYMPH % 18.5 % (9.0-44.0); LYMPHOCYTE # 2.1 TH/MM3 (1.0-4.8); MEAN CELL VOLUME 84.9 FL (80.0-100.0); MEAN CORPUSCULAR HEMOGLOBIN 28.9 PG (27.0-34.0); MEAN CORPUSCULAR HGB CONC 34.1 % (32.0-36.0); MONO % 10.1 % (0.0-8.0); NEUT % 70.4 % (16.0-70.0); PLATELET COUNT 275 TH/MM3 (150-450); RED BLOOD COUNT 3.06 MIL/MM3 (4.00-5.30); WHITE BLOOD COUNT 11.5 TH/MM3 (4.0-11.0)
[2016-10-26 19:56] LABS: ANION GAP 10 MEQ/L (5-15); AST (GOT) 20 U/L (15-37); BICARBONATE 27.5 MEQ/L (21.0-32.0); BLOOD UREA NITROGEN 18 MG/DL (7-18); CHLORIDE 98 MEQ/L (98-107); GLOMERULAR FILTRATION RATE 51 ML/MIN (>89); POTASSIUM 3.4 MEQ/L (3.5-5.1); SODIUM (NA) 135 MEQ/L (136-145)
[2016-10-26 19:59] LABS: ALKALINE PHOSPHATASE 66 U/L (45-117); ALT (GPT) 20 U/L (10-53); TOTAL BILIRUBIN ADULT 0.3 MG/DL (0.2-1.0)
[2016-10-26] MEDS: DOCUSATE SODIUM 100 MG CAP PO SCH (20:10)
[2016-10-26] MEDS: MAGNESIUM HYDROXIDE SUSP 30 ML CUP PO SCH (20:11)
[2016-10-26] MEDS: POLYETHYLENE GLYCOL 17 GM PKG PO SCH (20:11)
[2016-10-26] MEDS: MULTIVITAMINS/MINERALS THERAPEUTIC TAB PO SCH (20:11)
[2016-10-26] MEDS: BISACODYL EC 5 MG TABEC PO SCH (20:11)
[2016-10-26] MEDS: INSULIN DETEMIR 100 UNITS/ML VIAL SQ SCH (20:12)
[2016-10-26] MEDS: LEVOFLOXACIN 750 MG PREMIX INJ 150 ML IV SCH (21:30)
[2016-10-26] MEDS: CHLORHEXIDINE GLUCONATE 2 % 1 PACK (2 CLOTHS)(taper/protocol) TOP SCH (22:38)
[2016-10-27] VITALS (11 sets, daily range): BP systolic 141–167; BP diastolic 63–81; PULSE 57–75; RESP 16–19; TEMP 98.1–100; O2SAT 92–96
[2016-10-27 05:40] LABS: HEMATOCRIT 26.4 % (35.0-46.0); REVIEW FLAG FINAL
[2016-10-27] MEDS: LEVOTHYROXINE SODIUM 25 MCG TAB PO SCH (05:46)
[2016-10-27] MEDS: LEVOTHYROXINE SODIUM 150 MCG TAB PO SCH (05:50)
[2016-10-27] MEDS: INSULIN ASPART SUPPLEMENTAL SCALE SQ SCH ×4 (05:51→20:12)
[2016-10-27] MEDS: CHLORHEXIDINE GLUCONATE 4% SOLN 120 ML BTL TOP SCH (06:15)
[2016-10-27] MEDS: ACETAMINOPHEN/HYDROcodone 325 MG/7.5 MG TAB PO PRN ×5 (06:47→23:12)
[2016-10-27] MEDS: MAGNESIUM HYDROXIDE SUSP 30 ML CUP PO SCH ×2 (08:25→20:10)
[2016-10-27] MEDS: PRAVASTATIN SOD 40 MG TAB PO SCH (08:26)
[2016-10-27] MEDS: HYDROCHLOROTHIAZIDE 25 MG TAB PO SCH ×2 (08:26→20:11)
[2016-10-27] MEDS: cloNIDine HCL 0.1 MG TAB PO SCH ×2 (08:26→20:11)
[2016-10-27] MEDS: metFORMIN HCL 500 MG TAB PO SCH ×2 (08:26→16:50)
[2016-10-27] MEDS: CHOLECALCIFEROL (VIT D3) 1000 UNIT TAB PO SCH (08:26)
[2016-10-27] MEDS: ASCORBIC ACID 500 MG TAB PO SCH (08:26)
[2016-10-27] MEDS: BISACODYL EC 5 MG TABEC PO SCH ×2 (08:26→20:11)
[2016-10-27] MEDS: MULTIVITAMINS/MINERALS THERAPEUTIC TAB PO SCH ×2 (08:26→20:11)
[2016-10-27] MEDS: ENOXAPARIN SODIUM 30 MG/0.3 ML SYRINGE SQ SCH ×2 (08:31→23:12)
[2016-10-27] MEDS: SERTRALINE HCL 50 MG TAB PO SCH ×2 (08:31→20:11)
[2016-10-27] MEDS: DOCUSATE SODIUM 100 MG CAP PO SCH ×2 (08:31→20:11)
[2016-10-27] MEDS: ASPIRIN EC 81 MG TABEC PO SCH ×2 (08:31→20:11)
[2016-10-27] MEDS: POTASSIUM CHLORIDE 10 MEQ CONTROLLED RELEASE TAB PO SCH ×3 (08:31→16:50)
[2016-10-27] MEDS: PANTOPRAZOLE SOD 40 MG DELAYED RELEASE TAB PO SCH (08:31)
[2016-10-27] MEDS: ONDANSETRON HCL 4 MG/2 ML VIAL IVP PRN ×2 (08:32→18:01)
[2016-10-27] MEDS: METOPROLOL TARTRATE 50 MG TAB PO SCH ×2 (08:32→20:12)
[2016-10-27] MEDS: SODIUM CHLORIDE 0.9% FLUSH 5 ML FLUSH IVF SCH ×2 (08:32→20:12)
[2016-10-27] MEDS: LISINOPRIL 20 MG TAB PO SCH ×2 (08:42→20:11)
--- NOTE | 2016-10-27 08:50 | PD.ORT.PN ---
Subjective Subjective Remarks patient still basically comfortable, some pain behind knee. Wants different pain med. Objective Vitals Vital Signs Date Time Temp Pulse Resp B/P Pulse Ox O2 Delivery O2 Flow Rate FiO2 10/27/16 06:00 66 10/27/16 04:00 59 10/27/16 04:00 99.3 59 17 160/74 94 10/27/16 02:00 58 10/27/16 00:00 98.7 58 18 141/67 96 10/27/16 00:00 58 10/26/16 20:15 95 Nasal Cannula 5.00 10/26/16 20:00 100.2 64 19 102/96 94 10/26/16 19:12 101.6 77 16 156/71 91 10/26/16 17:20 96 15.00 10/26/16 12:00 100.0 61 16 112/69 95 10/26/16 09:58 92 Nasal Cannula 2.00 I/O 10/26/16 10/26/16 10/26/16 10/27/16 10/27/16 10/27/16 07:00 15:00 23:00 07:00 15:00 23:00 Intake Total 1866 ml 227 ml 240 ml 490 ml Output Total 500 ml 700 ml Balance 1866 ml 227 ml -260 ml -210 ml Intake Oral 480 ml 240 ml 280 ml IV Total 1386 ml 227 ml 210 ml Output Urine Total 500 ml 700 ml Stool Total 0 ml 0 ml # Voids 1 # Bowel Movements 0 Result Diagram: 10/27/16 0418 10/26/16 1838 Objective Remarks dressing dry and intact. On CPM. Assessment & Plan Ortho Post Op Day #: 2 Problem List: Assessment and Plan OOB, PT, wound care, medical management. Transfer back to ortho today. Constanza Woodall MD Oct 27, 2016 08:50
[2016-10-27] MEDS ORDERED: BACITRACIN OINT 0.9 GM PKT TOP PRN (10:15)
[2016-10-27] MEDS: LACTATED RINGER'S 1000 ML INJ 1,000 ML IV SCH ×2 (10:54→23:20)
[2016-10-27] MEDS: traMADol HCL 50 MG TAB PO PRN ×2 (10:55→20:16)
--- NOTE | 2016-10-27 14:22 | MP ---
cc: Constanza WOODALL M.D. DATE OF SURGERY: 10/25/2016 PREOPERATIVE DIAGNOSIS Osteoarthritic degeneration, right knee. POSTOPERATIVE DIAGNOSIS Osteoarthritic degeneration, right knee. SURGERY PERFORMED Right total knee arthroplasty using Consensus knee system, size 4 femur, 3 tibia, 2 patella, 10 insert with two batches of cobalt blue cement. SURGEON Dr. Woodall. SHEET METAL DUCT INSTALLER APPRENTICE JAKE Presley ANESTHESIA General intubation and block. PROCEDURE After successful induction of anesthesia, the patient is placed on the operating room table in the supine position. The knee is prepped and draped in the usual manner. A tourniquet is inflated at the upper thigh and set to 300 mmHg pressure after exsanguination of the lower extremity. A longitudinal incision is made extending from 3 inches proximal to the superior pole of the patella, across the patella in longitudinal fashion, and down past the insertion of the tibial tubercle into the proximal tibia. The incision is carried down through subcutaneous tissue along the medial aspect of the patella and retinaculum, down through the capsule to expose the knee joint. The patella and patellar tendon are freed up enough to allow the patella to be inverted and retracted off the lateral side of the knee joint. The knee joint is left exposed. Small osteophytes are removed. All soft tissue is removed to allow proper position of the femoral and tibial cutting jig guide. The first femoral jig is then inserted along the distal end of the femur after first measuring to decide whether this is a small, medium, or large component. The notch is then drilled and the tibial cutting guide inserted into the femoral cutting guide, along with the ankle brace to allow for proper measurement of the tibial cutting surface that needed to be resected. Pins are inserted into the tibial cutting jig and femoral cutting jig to hold them in place. An oscillating saw is then used to resect the surface of the tibia. The surface of the tibia is then completely removed using sharp and blunt dissection. The anterior and posterior cuts of the femur are then made as well using an oscillating saw through the cutting guide. All guides are then removed and the varus/valgus angulation cutting guide applied to the femur for proper measurement of the proper amount of valgus. The anterior cutting guide for the femur is then inserted at the anterior femoral cuts made. Next, the first block trial is inserted into the femur to allow for proper condyle drill holes to be made which are then made followed by removal of the bone between the condyles using an oscillating saw as well as the bone removed at the most posterior surface of the condyle. After this, this guide is removed and the chamfer cuts made using the chamfer cutting guide from both anterior and posterior. Next, the femoral trial is then inserted, the tibial surface reflected anterior to expose the tibial surface and a tibial stem guide is inserted after first measuring for a standard, standard plus, large, or large plus surface to be used. After the stem is impacted the trial tibial surface is applied followed by the trial meniscal components. After full range of motion is found with the appropriate length meniscal components varying the patella is prepared by resecting the posterior aspect of the patella using an oscillating saw, inserting a trial. The trial is then removed and the cruciate cutting guide applied using the bur to cut the cruciate cuts. After cruciate cuts are made all trials are removed. The wound is irrigated copiously with antibiotic solution and Water Pik and the actual components inserted into place using the aforementioned components. After the cement has hardened and the components are found to have full range of motion with no instability, the tourniquet is deflated, no tourniquet was utilized. 120 ccs of Exparel was used around the knee joint for extra pain control. The estimated blood loss was 200 ccs. Deep fascia approximated with running #2 quill, subcutaneous tissue approximated using interrupted running 3-0 and 4-0 Monocryl suture, Steri-Strips, sterile dressing and knee immobilizer. No drain was utilized. Estimated blood loss was 200 ccs. Sponge and suture count were correct. The patient tolerated the procedure well and left the operating room in satisfactory condition. ESTIMATED BLOOD LOSS: 200 cc. COUNTS: Sponge and suture counts were correct. COMPONENTS: The components used were the aforementioned components. JMD AYLA Zee/AKBARL /9:54 AM /1:07 PM
--- NOTE | 2016-10-27 16:26 | HHI.PR ---
Subjective Remarks f/u for knee replacement. Last night patient continued to have fevers and was hypoxic so was transfer [place] [facility] Fever work up done which so far negative. patient stated she is doing well. She denied any CP, palpitations, SOB, lightheadedness or dizziness. Her nurse is at the bedside. Objective Vitals Vital Signs Date Time Temp Pulse Resp B/P Pulse Ox O2 Delivery O2 Flow Rate FiO2 10/27/16 16:00 69 10/27/16 16:00 98.1 69 17 167/73 92 10/27/16 14:00 67 10/27/16 12:00 98.5 63 16 149/63 94 10/27/16 12:00 63 10/27/16 10:00 57 10/27/16 08:00 59 10/27/16 08:00 98.4 59 19 157/71 94 10/27/16 06:00 66 10/27/16 04:00 59 10/27/16 04:00 99.3 59 17 160/74 94 10/27/16 02:00 58 10/27/16 00:00 98.7 58 18 141/67 96 10/27/16 00:00 58 10/26/16 20:15 95 Nasal Cannula 5.00 10/26/16 20:00 100.2 64 19 102/96 94 10/26/16 19:12 101.6 77 16 156/71 91 10/26/16 17:20 96 15.00 I/O 10/26/16 10/26/16 10/26/16 10/27/16 10/27/16 10/27/16 07:00 15:00 23:00 07:00 15:00 23:00 Intake Total 1866 ml 227 ml 240 ml 490 ml 750 ml Output Total 500 ml 700 ml 800 ml Balance 1866 ml 227 ml -260 ml -210 ml -50 ml Intake Oral 480 ml 240 ml 280 ml 750 ml IV Total 1386 ml 227 ml 210 ml 0 ml Output Urine Total 500 ml 700 ml 800 ml Stool Total 0 ml 0 ml 0 ml # Voids 1 # Bowel Movements 0 Result Diagram: 10/27/16 0418 10/26/16 1838 Objective Remarks GENERAL: in NAD CARDIOVASCULAR: Regular rate and rhythm without murmurs, gallops, or rubs. RESPIRATORY: Breath sounds equal bilaterally. No accessory muscle use. GASTROINTESTINAL: Abdomen soft, non-tender, nondistended. BACK: Nontender without obvious deformity. No CVA tenderness. Medications and IVs Current Medications Lactated Ringer's 1,000 ml @ 30 mls/hr Q24H IV Last administered on 10/25/16 06:30; Start 10/25/16 at 08:00; Stop 10/25/16 at 11:38; Status DC Sodium Chloride (NS 500 ml Inj) 500 ml @ 30 mls/hr [id number] IV ; Start 10/25/16 at 08:00; Stop 10/25/16 at 11:38; Status DC Insulin Human Regular (NovoLIN R INJ) See Protocol Table ... UNSCH X1 PRN SQ SEE PROTOCOL Last administered on 10/25/16 06:42; Start 10/25/16 at 06:15; Stop 10/26/16 at 06:14; Status DC Metoprolol Tartrate (Lopressor) 25 mg UNSCH X1 PRN PO SEE LABEL COMMENTS; Start 10/25/16 at 06:15; Stop 10/26/16 at 06:14; Status DC Chlorhexidine Gluconate 1 applic 1 applic ONCE TOP ; Start 10/25/16 at 06:15; Stop 10/28/16 at 06:14 Cefazolin Sodium/ Dextrose 50 ml @ 100 mls/hr TECHNICAL BUYER IV Last administered on 10/25/16 08:31; Start 10/25/16 at 07:00; Stop 10/26/16 at 06:59; Status DC Vancomycin HCl 1000 mg/Sodium Chloride 250 ml @ 250 mls/hr TECHNICAL BUYER IV Last administered on 10/25/16 06:46; Start 10/25/16 at 06:15; Stop 10/26/16 at 06:14 ; Status DC Tranexamic Acid 906 mg/Sodium Chloride 109.06 ml @ 200 mls/ hr ONCE IV Last administered on 10/25/16 08:23; Start 10/25/16 at 08:00; Stop 10/25/16 at 14:00 ; Status DC Tranexamic Acid/ Sodium Chloride (Cyklokapron Inj/ NS Inj) 109.06 ml @ 200 mls / hr ONCE IV Last administered on 10/25/16 11:36; Start 10/25/16 at 11:00; Stop 10/25/16 at 17:00; Status DC Midazolam HCl 5 mg 5 mg STK-MED ONCE .ROUTE Last administered on 10/25/16 07: 26; Start 10/25/16 at 07:15; Stop 10/25/16 at 07:16; Status DC Bupivacaine Liposome/ Bupivacaine HCl/ Sodium Chloride (Exparel Pf 1.3% Inj/ Marcaine Pf 0.25% Inj/NS Inj) 140 ml @ 240 mls/hr ONCE P-ARTICULR ; Start 10/25 at 07:30; Stop 10/25/16 at 12:34; Status DC Acetaminophen (Ofirmev Inj) 1,000 mg STK-MED ONCE IV ; Start 10/25/16 at 08:06; Stop 10/25/16 at 08:07; Status DC Famotidine (Pepcid Inj) 20 mg STK-MED ONCE .ROUTE ; Start 10/25/16 at 08:06; Stop 10/25/16 at 08:07; Status DC Cefazolin Sodium 1000 mg 1,000 mg STK-MED ONCE XX Last administered on 08:55; Start 10/25/16 at 08:55; Stop 10/25/16 at 09:09; Status DC Lactated Ringer's (Lr 1000 ml Inj) 1,000 ml @ 80 mls/hr [id number] IV Last administered on 10/25/16 23:12; Start 10/25/16 at 10:42 IV Flush (NS Flush) 2 ml UNSCH PRN IVF FLUSH AFTER USING IV ACCESS Last administered on 10/27/16 08:32; Start 10/25/16 at 10:45 IV Flush 2 ml 2 ml BID IVF Last administered on 10/27/16 08:32; Start at 21:00 Cefazolin Sodium/ Sodium Chloride (Ancef Inj/NS Inj) 100 ml @ 200 mls/hr Q6H IV Last administered on 10/26/16 02:44; Start 10/25/16 at 15:00; Stop at 03:29; Status DC Miscellaneous Information (Post-op Orders (for Pharmacy)) STAT ONCE XX ; Start 10/25/16 at 10:45; Stop 10/25/16 at 11:44; Status DC Enoxaparin Sodium (Lovenox Inj) 30 mg Q12H SQ Last administered on 10/27/16 08 :31; Start 10/26/16 at 10:00 Acetaminophen/ Hydrocodone Bitart ([employer] 7.5-325 Mg) 1 tab Q4H PRN PO PAIN LESS THAN 5 ON SCALE Last administered on 10/27/16 08:53; Start 10/25/16 at 10: 45 Acetaminophen/ Hydrocodone Bitart ([employer] 7.5-325 Mg) 2 tab Q4H PRN PO PAIN SCALE 5 TO 10 Last administered on 10/27/16 12:57; Start 10/25/16 at 10:45 Acetaminophen 650 mg 650 mg Q6H PRN PO temp over 101 Last administered on 20:11; Start 10/25/16 at 10:45 Tranexamic Acid/ Sodium Chloride (Cyklokapron Inj/ NS Inj) 100 ml @ 200 mls/hr UNSCH IV ; Start 10/25/16 at 10:45; Stop 10/25/16 at 11:14; Status UNV Multivitamins/ Minerals Therapeutic (Theragran M Tab) 1 tab BID PO Last administered on 10/27/16 08:26; Start 10/26/16 at 21:00; Stop 12/25/16 at 20:59 Ondansetron HCl (Zofran Inj) 4 mg Q6H PRN IVP NAUSEA OR VOMITING Last administered on 10/27/16 08:32; Start 10/25/16 at 10:45 Docusate Sodium (Colace) 100 mg BID PO Last administered on 10/27/16 08:31; Start 10/26/16 at 21:00 Temazepam (Restoril) 15 mg HS PRN PO SLEEP; Start 10/25/16 at 21:00 Bacitracin (Bacitracin Oint Packet) 0.9 gm UNSCH X1 PRN TOP WOUND CARE; Start 10/27/16 at 10:15; Stop 10/29/16 at 10:14 Naloxone HCl (Narcan Inj) 0.4 mg UNSCH PRN IV RESPIRATORY RATE LESS THAN 10; Start 10/25/16 at 10:45; Stop 10/26/16 at 11:59; Status DC Diphenhydramine HCl (Benadryl Inj) 25 mg Q6H PRN IV ITCHING; Start 10/25/16 at 10:45; Stop 10/26/16 at 11:59; Status DC Morphine Sulfate (Morphine 1 Mg/ ml CONSTRUCTION ESTIMATOR) 30 mg UNSCH IV Last administered on 04:04; Start 10/25/16 at 10:45; Stop 10/26/16 at 11:59; Status DC CONSTRUCTION ESTIMATOR Dosage Infused (Pha) 1 Q8HR .XX Last administered on 10/26/16 05:18; Start 10/25/16 at 14:00; Stop 10/26/16 at 11:59; Status DC Naloxone HCl (Narcan Inj) 0.4 mg UNSCH PRN IV RESPIRATORY RATE LESS THAN 10; Start 10/25/16 at 10:45; Status UNV Ascorbic Acid (Vitamin C) 1,000 mg DAILY PO Last administered on 10/27/16 08: 26; Start 10/26/16 at 09:00 Aspirin (Ecotrin Ec) 81 mg BID PO Last administered on 10/27/16 08:31; Start 10/25/16 at 21:00 Cholecalciferol (Vitamin D3) 1,000 units DAILY PO Last administered on 08:26; Start 10/26/16 at 09:00 Clonidine (Catapres) 0.1 mg BID PO Last administered on 10/27/16 08:26; Start 10/25/16 at 21:00 Metformin HCl (Glucophage) 1,000 mg BIDPC PO Last administered on 10/27/16 08: 26; Start 10/25/16 at 18:00 Metoprolol Tartrate (Lopressor) 50 mg BID PO Last administered on 10/26/16 20: 11; Start 10/25/16 at 21:00 Pantoprazole Sodium (Protonix) 40 mg DAILY PO Last administered on 10/27/16 08 :31; Start 10/26/16 at 09:00 Potassium Chloride (KCl) 10 meq TID PO Last administered on 10/27/16 12:40; Start 10/25/16 at 13:00 Pravastatin Sodium (Pravachol) 40 mg DAILY PO Last administered on 10/27/16 08 :26; Start 10/26/16 at 09:00 Sertraline HCl (Zoloft) 50 mg BID PO Last administered on 10/27/16 08:31; Start 10/25/16 at 21:00 Non-Formulary Medication 1,000 mg DAILY PO ; Start 10/26/16 at 09:00; Stop 10/26 at 09:00; Status DC Patient Own Medication PT OWN MED: TOUJEO SOLOSTAR ... HS SQ ; Start 10/25/16 at 21:00; Status Hold Levothyroxine Sodium (Synthroid) 150 mcg DAILY@06 PO Last administered on 05:50; Start 10/26/16 at 06:00 Non-Formulary Medication 1 tab BID PO BPM; Start 10/25/16 at 21:00; Status UNV Non-Formulary Medication 1 cap DAILY PO ; Start 10/26/16 at 09:00; Status UNV Non-Formulary Medication 2 cap DAILY PO ; Start 10/26/16 at 09:00; Stop at 09:00; Status DC Fentanyl Citrate (fentaNYL INJ) 100 mcg STK-MED ONCE .ROUTE ; Start 10/25/16 at 11:10; Stop 10/25/16 at 11:11; Status DC Fentanyl Citrate (fentaNYL INJ) 250 mcg STK-MED ONCE .ROUTE ; Start 10/25/16 at 11:10; Stop 10/25/16 at 11:11; Status DC Promethazine HCl (*PHENERGAN INJ PERIprocedural ONLY) 25 mg STK-MED ONCE .ROUTE Last administered on 10/25/16 11:13; Start 10/25/16 at 11:13; Stop 10/25/16 at 11:14; Status DC Miscellaneous Information ALL NURSING DEPARTME... UNSCH PRN XX SEE LABEL COMMENTS; Start 10/25/16 at 11:30; Stop 10/26/16 at 11:29; Status DC Morphine Sulfate (*morphine INJ PERIprocedure ONLY) 8 mg STK-MED ONCE .ROUTE Last administered on 10/25/16 11:27; Start 10/25/16 at 11:27; Stop 10/25/16 at 11:28; Status DC Ondansetron HCl (*ZOFRAN INJ PERIprocedural ONLY) 4 mg STK-MED ONCE .ROUTE Last administered on 10/25/16 11:36; Start 10/25/16 at 11:34; Stop 10/25/16 at 11:35; Status DC Dexamethasone Sodium Phosphate (Decadron Inj) 4 mg STK-MED ONCE .ROUTE Last administered on 10/25/16 11:54; Start 10/25/16 at 11:54; Stop 10/25/16 at 11:55 ; Status DC Dexamethasone Sodium Phosphate (Decadron Inj) 4 mg NOW ONCE IV ; Start at 12:30; Stop 10/25/16 at 12:34; Status DC Metoclopramide HCl (Reglan Inj) 10 mg ONCE ONCE IV ; Start 10/25/16 at 12:30; Stop 10/25/16 at 12:34; Status DC Lisinopril (Prinivil) 20 mg BID PO Last administered on 10/27/16 08:42; Start 10/25/16 at 21:00 Hydrochlorothiazide (Hydrodiuril) 12.5 mg BID PO Last administered on 08:26; Start 10/25/16 at 21:00 Levothyroxine Sodium (Synthroid) 25 mcg DAILY@06 PO Last administered on 05:46; Start 10/26/16 at 06:00 Dextrose (D50w (Vial) Inj) 25 ml UNSCH PRN IV PUSH HYPOGLYCEMIA-SEE COMMENTS; Start 10/25/16 at 15:00 Glucagon (Glucagon Inj) 1 mg UNSCH PRN OTHER HYPOGLYCEMIA-SEE COMMENTS; Start 10/25/16 at 15:00 Insulin Aspart (NovoLOG SUPPLEMENTAL SCALE) 1 ACHS SLIDING SCALE SQ Last administered on 10/27/16 12:40; Start 10/25/16 at 16:00 Insulin Detemir (Levemir Inj) 20 units HS SQ Last administered on 10/25/16 21: 19; Start 10/25/16 at 21:00; Stop 10/26/16 at 12:24; Status DC Bupivacaine HCl (Marcaine Pf 0.5% Inj) 20 ml STK-MED ONCE NB ; Start 10/25/16 at 07:49; Stop 10/26/16 at 07:49; Status DC Insulin Detemir (Levemir Inj) 30 units HS SQ Last administered on 10/26/16 20: 12; Start 10/26/16 at 21:00 Propofol (Diprivan 200 Mg/20 ml Inj) 200 mg STK-MED ONCE IV ; Start 10/25/16 at 12:00; Stop 10/26/16 at 14:12; Status DC Ephedrine Sulfate (ePHEDrine/NS 25 MG/5 ML SYR) 25 mg STK-MED ONCE IV ; Start at 12:00; Stop 10/26/16 at 14:12; Status DC Neostigmine Methylsulfate (Prostigmin Inj) 3 mg STK-MED ONCE IV ; Start at 12:00; Stop 10/26/16 at 14:12; Status DC Phenylephrine HCl (Neosynephrine/ NS 1000 Mcg/10ml Syr) 1,000 mcg STK-MED ONCE IV ; Start 10/25/16 at 12:00; Stop 10/26/16 at 14:12; Status DC Ondansetron HCl 4 mg 4 mg STK-MED ONCE IV PUSH ; Start 10/25/16 at 12:00; Stop 10/26/16 at 14:12; Status DC Lactated Ringer's 1,000 ml @ As Directed STK-MED ONCE IV ; Start 10/25/16 at 12 :00; Stop 10/26/16 at 14:13; Status DC Sodium Chloride (NS 500 ml Inj) 500 ml @ As Directed STK-MED ONCE IV ; Start at 12:00; Stop 10/26/16 at 14:13; Status DC Bisacodyl (Dulcolax Ec) 10 mg BID PO Last administered on 10/27/16 08:26; Start 10/26/16 at 21:00 Magnesium Hydroxide (Milk Of Magnesia Liq) 30 ml BID PO Last administered on 08:25; Start 10/26/16 at 21:00 Polyethylene Glycol (Miralax) 17 gm HS PO Last administered on 10/26/16 20:11 ; Start 10/26/16 at 21:00 Miscellaneous Information Patient in critical care unit? Ass... [id number] Last administered on 10/27/16 07:47; Start 10/26/16 at 18:30 Chlorhexidine Gluconate (Chlorhexidine 2% Cloth) 3 pack DAILY@04 TOP Last administered on 10/26/16 22:38; Start 10/27/16 at 04:00; Stop 10/31/16 at 04:01 Chlorhexidine Gluconate 3 pack 3 pack UNSCH PRN TOP HYGIENIC CARE; Start at 18:30; Stop 10/31/16 at 18:20 Levofloxacin/ Dextrose (Levaquin 750 Mg Premix Inj) 150 ml @ 100 mls/hr HS IV Last administered on 10/26/16 21:30; Start 10/26/16 at 21:30 Tramadol HCl (Ultram) 100 mg Q4H PRN PO PAIN SCALE 6 TO 10 Last administered on 10/27/16 10:55; Start 10/27/16 at 09:00 A/P Assessment and Plan Severe right knee ostearthritis -right total knee arthroplasty by Dr. Woodall on 10/26/16. -being management by Dr. Woodall. post op fevers -no signs of infection and clinically doing well. -labs are WNL. CXR and UA negative. Blood cultures so far negative. CAD/HT/hypothyroidism -home medication was restarted except for plavix. -when okay with surgery resume plavix. T2DM insulin -Toujeo not on formulary. - levemir to 30 units. -on SSI. -continue to monitor and adjust accordingly. DVT prophylaxis -lovenox Discharge Planning patient is stable and doing well. She can be transferred back to Ortho. possible d/c to SNF tomorrow if she continues to do well. Danielle Osborn MD Oct 27, 2016 16:26
[2016-10-27] MEDS: POLYETHYLENE GLYCOL 17 GM PKG PO SCH (20:10)
[2016-10-27] MEDS: INSULIN DETEMIR 100 UNITS/ML VIAL SQ SCH (20:12)
[2016-10-27] MEDS: LEVOFLOXACIN 750 MG PREMIX INJ 150 ML IV SCH (20:13)
[2016-10-27] MEDS: ACETAMINOPHEN 325 MG TAB PO PRN (23:12)
[2016-10-27] MEDS: CHLORHEXIDINE GLUCONATE 2 % 1 PACK (2 CLOTHS)(taper/protocol) TOP SCH (23:20)
[2016-10-28] VITALS: BP 143/66; PULSE 73; RESP 16; TEMP 100.5; O2SAT 93
[2016-10-28] MEDS: ONDANSETRON HCL 4 MG/2 ML VIAL IVP PRN ×2 (03:23→11:05)
[2016-10-28] MEDS: ACETAMINOPHEN/HYDROcodone 325 MG/7.5 MG TAB PO PRN ×3 (03:26→17:50)
[2016-10-28 04:00] VITALS: BP 141/66; PULSE 77; RESP 17; TEMP 99.4; O2SAT 97
[2016-10-28] MEDS: LEVOTHYROXINE SODIUM 150 MCG TAB PO SCH (07:44)
[2016-10-28] MEDS: LEVOTHYROXINE SODIUM 25 MCG TAB PO SCH (07:45)
[2016-10-28] MEDS: INSULIN ASPART SUPPLEMENTAL SCALE SQ SCH ×3 (07:45→17:50)
[2016-10-28 08:10] VITALS: BP 142/73; PULSE 73; RESP 18; TEMP 99.4; O2SAT 94
[2016-10-28] MEDS: METOPROLOL TARTRATE 50 MG TAB PO SCH (09:00)
[2016-10-28] MEDS: ASPIRIN EC 81 MG TABEC PO SCH (09:01)
[2016-10-28] MEDS: POTASSIUM CHLORIDE 10 MEQ CONTROLLED RELEASE TAB PO SCH ×3 (09:01→16:26)
[2016-10-28] MEDS: SERTRALINE HCL 50 MG TAB PO SCH (09:01)
[2016-10-28] MEDS: DOCUSATE SODIUM 100 MG CAP PO SCH (09:01)
[2016-10-28] MEDS: MAGNESIUM HYDROXIDE SUSP 30 ML CUP PO SCH (09:01)
[2016-10-28] MEDS: PRAVASTATIN SOD 40 MG TAB PO SCH (09:02)
[2016-10-28] MEDS: cloNIDine HCL 0.1 MG TAB PO SCH (09:02)
[2016-10-28] MEDS: CHOLECALCIFEROL (VIT D3) 1000 UNIT TAB PO SCH (09:02)
[2016-10-28] MEDS: MULTIVITAMINS/MINERALS THERAPEUTIC TAB PO SCH (09:02)
[2016-10-28] MEDS: LISINOPRIL 20 MG TAB PO SCH (09:03)
[2016-10-28] MEDS: metFORMIN HCL 500 MG TAB PO SCH ×2 (09:03→16:32)
[2016-10-28] MEDS: ASCORBIC ACID 500 MG TAB PO SCH (09:03)
[2016-10-28] MEDS: HYDROCHLOROTHIAZIDE 25 MG TAB PO SCH (09:03)
[2016-10-28] MEDS: PANTOPRAZOLE SOD 40 MG DELAYED RELEASE TAB PO SCH (09:03)
[2016-10-28] MEDS: SODIUM CHLORIDE 0.9% FLUSH 5 ML FLUSH IVF SCH (09:04)
[2016-10-28] MEDS: BISACODYL EC 5 MG TABEC PO SCH (09:04)
[2016-10-28] MEDS: ENOXAPARIN SODIUM 30 MG/0.3 ML SYRINGE SQ SCH (11:05)
--- NOTE | 2016-10-28 11:39 | PD.ORT.PN ---
Subjective Subjective Remarks patient still basically comfortable, some pain behind knee. Objective Vitals Vital Signs Date Time Temp Pulse Resp B/P Pulse Ox O2 Delivery O2 Flow Rate FiO2 10/28/16 09:09 94 Nasal Cannula 2.00 10/28/16 08:10 99.4 73 18 142/73 94 10/28/16 04:00 99.4 77 17 141/66 97 10/28/16 00:00 100.5 73 16 143/66 93 10/27/16 23:20 Nasal Cannula 2.00 10/27/16 21:52 23 10/27/16 20:13 20 10/27/16 20:00 100.0 72 17 143/81 95 10/27/16 20:00 72 10/27/16 18:00 75 10/27/16 16:00 69 10/27/16 16:00 98.1 69 17 167/73 92 10/27/16 14:00 67 10/27/16 12:00 98.5 63 16 149/63 94 10/27/16 12:00 63 I/O 10/27/16 10/27/16 10/27/16 10/28/16 10/28/16 10/28/16 07:00 15:00 23:00 07:00 15:00 23:00 Intake Total 490 ml 750 ml 240 ml Output Total 700 ml 800 ml Balance -210 ml -50 ml 240 ml Intake Oral 280 ml 750 ml 240 ml IV Total 210 ml 0 ml Output Urine Total 700 ml 800 ml Stool Total 0 ml 0 ml # Voids 1 # Bowel Movements 0 Result Diagram: 10/27/16 0418 10/26/16 1838 Objective Remarks dressing dry and intact. On CPM. Assessment & Plan Ortho Post Op Day #: 3 Problem List: Assessment and Plan OOB, PT, wound care, medical management. Rehab transfer when available. Constanza Woodall MD Oct 28, 2016 11:39
--- NOTE | 2016-10-28 11:54 | HHI.DS ---
Discharge Summary Admission Date Oct 25, 2016 at 05:32 Discharge Date: Oct 28, 2016 Admitting Diagnosis Osteoarthritic degeneration right knee Diagnosis: (1) Status post total right knee replacement Diagnosis: Principal Brief History This is a 71 year old female patient CBC/BMP: 10/27/16 0418 10/26/16 1838 Significant Findings Laboratory Tests Test 10/26/16 10/26/16 10/26/16 10/27/16 05:46 17:20 18:38 04:18 Hemoglobin 9.5 GM/DL 8.9 GM/DL 8.7 GM/DL (11.6-15.3) (11.6-15.3) (11.6-15.3) Hematocrit 28.2 % 26.0 % 26.4 % (35.0-46.0) (35.0-46.0) (35.0-46.0) Arterial Blood pH 7.43 (7.380-7.420) Arterial Blood Partial 129 mmHg Pressure O2 (61-120) Blood Gas Hemoglobin 10.3 G/DL (12.0-16.0) White Blood Count 11.5 TH/MM3 (4.0-11.0) Red Blood Count 3.06 MIL/MM3 (4.00-5.30) Neutrophils (%) (Auto) 70.4 % (16.0-70.0) Monocytes (%) (Auto) 10.1 % (0.0-8.0) Neutrophils # (Auto) 8.1 TH/MM3 (1.8-7.7) Monocytes # (Auto) 1.2 TH/MM3 (0-0.9) Sodium Level 135 MEQ/L (136-145) Potassium Level 3.4 MEQ/L (3.5-5.1) Creatinine 1.07 MG/DL (0.50-1.00) Estimat Glomerular Filtration 51 ML/MIN (>89) Rate Random Glucose 189 MG/DL (74-106) B-Type Natriuretic Peptide 348 PG/ML (0-100) Albumin 3.0 GM/DL (3.4-5.0) PE at Discharge dressing dry and intact. On CPM. Hospital Course This patient underwent a right total knee arthroplasty on day of admission. She received a course of prophylactic IV antibiotics and within 23 hours started back on anticoagulation therapy. She developed low oxygen and a fever the day after surgery for which she spent a day in intensive care. She was then transferred back when she became afebrile to the standard orthopedic floor for continuation of care. She began out of bed tolerating food and fluids well and physical therapy. She received daily wound care and by mouth pain meds. She continued to improve and was discharged to skilled facility for continuation of care with instructions to follow up in the office for recheck. She was discharged in good condition. Pt Condition on Discharge: Good Discharge Disposition: Rehab Inpatient Discharge Instructions Diet Instructions: Diabetic Diet Activities You Can Perform: Full Weight Bearing, Shower Only-No Bath Activities to Avoid: Bathing, Driving Constanza Woodall MD Oct 28, 2016 11:54
--- NOTE | 2016-10-28 11:56 | HHI.PR ---
Subjective Remarks f/u hypoxia and right total knee replacement Pt doing much better. SOB is much improved. Doesn't use oxygen at home. Pain well controlled denies any CP. Has mild nausea at times but no vomiting Objective Vitals Vital Signs Date Time Temp Pulse Resp B/P Pulse Ox O2 Delivery O2 Flow Rate FiO2 10/28/16 09:09 94 Nasal Cannula 2.00 10/28/16 08:10 99.4 73 18 142/73 94 10/28/16 04:00 99.4 77 17 141/66 97 10/28/16 00:00 100.5 73 16 143/66 93 10/27/16 23:20 Nasal Cannula 2.00 10/27/16 21:52 23 10/27/16 20:13 20 10/27/16 20:00 100.0 72 17 143/81 95 10/27/16 20:00 72 10/27/16 18:00 75 10/27/16 16:00 69 10/27/16 16:00 98.1 69 17 167/73 92 10/27/16 14:00 67 10/27/16 12:00 98.5 63 16 149/63 94 10/27/16 12:00 63 I/O 10/27/16 10/27/16 10/27/16 10/28/16 10/28/16 10/28/16 07:00 15:00 23:00 07:00 15:00 23:00 Intake Total 490 ml 750 ml 240 ml Output Total 700 ml 800 ml Balance -210 ml -50 ml 240 ml Intake Oral 280 ml 750 ml 240 ml IV Total 210 ml 0 ml Output Urine Total 700 ml 800 ml Stool Total 0 ml 0 ml # Voids 1 # Bowel Movements 0 Result Diagram: 10/27/16 0418 10/26/16 1838 Imaging Last Impressions Chest X-Ray 10/26/16 0000 Signed Impressions: Service Date/Time: Wednesday, October 26, 2016 17:31 - CONCLUSION: 1. Eventration of the right hemidiaphragm. 2. Mild streaky opacity at both lung bases most consistent with atelectasis. Cain Dewitt MD Knee X-Ray 10/25/16 1042 Signed Impressions: Service Date/Time: Tuesday, October 25, 2016 11:20 - CONCLUSION: Satisfactory post operative appearance the right knee following total knee replacement. Denzel F. Alyx, MD Objective Remarks GENERAL: in NAD CARDIOVASCULAR: Regular rate and rhythm without murmurs RESPIRATORY: Breath sounds equal bilaterally. No accessory muscle use. NC in place GASTROINTESTINAL: Abdomen soft, non-tender, nondistended. MSK:Dressing over right knee. d/c/i, no erythema. able to wiggle her toes, sensation intact A/P Assessment and Plan Severe right knee ostearthritis -right total knee arthroplasty by Dr. Woodall POD#3, anticoagulation, rehab and DVT proph per ortho post op fevers -no signs of infection and clinically doing well. Blood cx neg x2 days. Most likely atelectasis/post op fevers -labs are WNL. CXR and UA negative. Encouraged use of IS q1hr while awake Hypoxia: apparently pt desaturated 2 days ago and was transferred [facility]. sepsis workup neg. still on NC. will order a walk test to see if she requires oxygen as an outpatient. Lung exam benign this morning. CAD/HT/hypothyroidism on home meds except for plavix which will be resumed when cleared by ortho. T2DM insulin -Toujeo not on formulary. - levemir to 30 units. -on SSI. -continue to monitor and adjust accordingly. DVT prophylaxis -lovenox Discharge Planning ok to discharge to rehab from a medical standpoint. Awaiting results for walk test in case she may need home oxygen. d/c per primary team Racheal Dang MD Oct 28, 2016 11:56
[2016-10-28 12:10] VITALS: BP 114/63; PULSE 60; RESP 16; TEMP 98.9; O2SAT 98
[2016-10-28] MEDS ORDERED: OXYGENTANK NAS.CANULA (15:50)
[2016-10-28] MEDS ORDERED: BISACODYL 10 MG SUPP RECTAL ONE (16:00)
[2016-10-28 16:25] VITALS: BP 149/70; PULSE 64; RESP 16; TEMP 98; O2SAT 93
[2016-11-10] MEDS ORDERED: COMMODE 3-IN-11 MIS (14:46)
[2016-11-10] MEDS ORDERED: shower chair (14:46)
[2016-11-11] MEDS ORDERED: NIFE20 PO (08:17)
[2016-11-11] MEDS ORDERED: LISI40TA PO (08:17)
[2016-11-11] MEDS ORDERED: CREON24 PO (08:17)
[2016-11-11] MEDS ORDERED: LEVEMIR SQ (08:17)
[2016-11-11] MEDS ORDERED: METO25TA3 PO (08:17)
[2016-11-11] MEDS ORDERED: LEVO-154 PO (08:17)
[2016-11-11] MEDS ORDERED: POTA-163 PO (08:17)
[2016-11-11] MEDS ORDERED: HYDR-3583 PO (08:17)
[2016-11-11] MEDS ORDERED: VITA100018 PO (08:17)
[2016-11-11] MEDS ORDERED: PRAV40TA2 PO (08:17)
[2016-11-11] MEDS ORDERED: ASPI1TAB69 PO (08:17)
[2016-11-11] MEDS ORDERED: MULTCAP PO (08:17)
[2016-11-11] MEDS ORDERED: PANT40TA3 PO (08:17)
[2016-11-11] MEDS ORDERED: GLIP5 PO (08:17)
[2016-11-11] MEDS ORDERED: METF1000 PO (08:17)
[2016-11-11] MEDS ORDERED: SERT-132 PO (08:17)
[2016-11-11] MEDS ORDERED: PLAV75TA29 PO (08:17)
[2016-11-11] MEDS ORDERED: HYDR25TA5 PO (08:17)
== END 2016-10-28 18:23 | DRG 470 ==
LOC: HSDI 10-25 05:32 → N06A 10-25 13:05 → HIME 10-26 17:43 → N06A 10-27 22:18
PROVIDERS: ADMIT Surgery; ATTEND Surgery
PROC: 3E0T3CZ (ICD-10-PCS; 2016-10-25)
PROC: 0SRC0J9 Replacement of Right Knee Joint with Synthetic Substitute, Cemented, Open Approach (ICD-10-PCS; principal; 2016-10-25 08:08)
DX: M17.11 Unilateral primary osteoarthritis, right knee (principal); E11.9 Type 2 diabetes mellitus without complications; R50.82 Postprocedural fever; I10 Essential (primary) hypertension; J98.11 Atelectasis; Z85.6 Personal history of leukemia; M54.5 Low back pain; Z95.5 Presence of coronary angioplasty implant and graft; Z95.820 Peripheral vascular angioplasty status with implants and grafts; I25.10 Atherosclerotic heart disease of native coronary artery without angina pectoris; F32.9 Major depressive disorder, single episode, unspecified; Z79.4 Long term (current) use of insulin; E03.9 Hypothyroidism, unspecified; R09.02 Hypoxemia
CPT/HCPCS: 36600; 71010; 73560; 80053; 82805; 82948; 83605; 83880; 85014; 85018; 85025; 86850; 86900; 86901; 87040; 87641; 93005; 94150; 94620; C1776; C9290; J0131; J0690; J1100; J1650; J1815; J1956; J2250; J2270; J2370; J2405; J2550; J2710; J3010; J3370; J7040; J7050; J7120; L1830

== ENCOUNTER → 2016-11-03 | Outpatient (CLI) | payer OTHER ==
[~2016-11-03] MED LIST: ASPI1TAB69 PO; BIOT1000 PO; CLON0.1T PO; COMMODE 3-IN-11 MIS; CPMMACHINE; CREON24 PO; GLIP5 PO; HUMA100I3 SQ; HYDR-3580 PO; HYDR-3583 PO; HYDR25TA5 PO; INSU1.2I SQ; LEVEMIR SQ; LEVO-154 PO; LISI20TA PO; LISI40TA PO; METF1000 PO; METO25TA3 PO; METO50TA PO; MISC-163; MULTCAP PO; NIFE20 PO; OMEG5CAP PO; OXYGENTANK NAS.CANULA; PANT40TA3 PO; PLAV75TA29 PO; POTA-163 PO; POTA10TA8 PO; PRAV40TA2 PO; PROPOFOL 200 MG/20 ML AMP IV ONE; SERT-132 PO; VITA100018 PO; VITA10007 PO; WALKER WHEELS/F1 MIS; shower chair
[2016-11-03 14:17] VITALS: TEMP 98
--- NOTE | 2016-11-03 14:25 | GIPROC ---
[facility] [address] [facility]. [facility], [address] EGD PROCEDURE REPORT EXAM DATE: 11/03/2016 PATIENT NAME: Sharmin Tejada MR #: [id number] BIRTHDATE: 1945 ATTENDING: Trupti Francois MD ORDER #: [id number] BIG DATA ANALYTICS LEAD: Chacorta Benavidez and Sd Villela STATUS: outpatient INDICATIONS: The patient is a 71 yr old female here for an EGD due to diarrhea , anemia, hem positive stool PROCEDURE PERFORMED: EGD w/ biopsy MEDICATIONS: None and Per Anesthesia. TOPICAL ANESTHETIC: none CONSENT: The patient understands the risks and benefits of the procedure and understands that these risks include, but are not limited to: sedation, allergic reaction, infection, perforation and/or bleeding. Alternative means of evaluation and treatment include, among others: physical exam, x-rays, and/or surgical intervention. The patient elects to proceed with this endoscopic procedure. medical equipment was checked for proper function. Hand hygiene and appropriate measures for infection prevention was taken. After the risks, benefits and alternatives of the procedure were thoroughly explained, Informed consent was verified, confirmed and timeout was successfully executed by the treatment team. The patient was anesthetized with topical anesthesia and the [id number] (Pedi C) and [id number] endoscope was introduced through the mouth and advanced to the second portion of the duodenum. Retroflexed views revealed a hiatal hernia The gastroscope was then slowly withdrawn and removed. Gastritis antrum-biopsy duodenum normal-biopsy esophagitis distal esophagus-biopsy. ADVERSE EVENTS: There were no complications. IMPRESSIONS: 1. Gastritis antrum-biopsy duodenum normal-biopsy esophagitis distal esophagus-biopsy 2. Retroflexed views revealed a hiatal hernia RECOMMENDATIONS: 1. Await biopsy results. Biopsy results will not be ready for 7-10 days. If you don't hear from us in two weeks, call our office for biopsy results. 2. Anti-reflux regimen 3. Continue PPI 4. Avoid NSAIDS PATIENT CONDITION: stable DISPOSITION: return to rehab REPEAT EXAM: EGD pending biopsy results Trupti Francois MD eSigned: Trupti Francois MD 11/03/2016 2:25 PM cc: PATIENT NAME: Sharmin Tejada MR#: [id number]
--- NOTE | 2016-11-03 14:28 | GIPROC ---
[facility] [address] [facility]. [facility], [address] COLONOSCOPY PROCEDURE REPORT EXAM DATE: 11/03/2016 PATIENT NAME: Sharmin Tejada MR #: [id number] BIRTHDATE: 1945 ENDOSCOPIST: Trupti Francois MD ORDER #: [id number] ZIPPER LINING FOLDER: Chacorta Benavidez and Sd V[place]la STATUS: outpatient INDICATIONS: The patient is a 71 yr old female here for a colonoscopy due to diarrhea, hem positive stool PROCEDURE PERFORMED: Colonoscopy with biopsy MEDICATIONS: None and Per Anesthesia. PREP QUALITY: fair PREP TYPE:GoLytely ESTIMATED BLOOD LOSS: None CONSENT: The patient understands the risks and benefits of the procedure and understands that these risks include, but are not limited to: sedation, allergic reaction, infection, perforation and/or bleeding. Alternative means of evaluation and treatment include, among others: physical exam, x-rays, and/or surgical intervention. The patient elects to proceed with this endoscopic procedure. medical equipment was checked for proper function. Hand hygiene and appropriate measures for infection prevention was taken. After the risks, benefits and alternatives of the procedure were thoroughly explained, Informed consent was verified, confirmed and timeout was successfully executed by the treatment team. A digital exam revealed hemorrhoids The Pentax [id number] and [id number] endoscope was introduced through the anus and advanced to the cecum, which was identified by both the appendix and ileocecal valve. The instrument was then slowly withdrawn as the colon was fully examined. COLON FINDINGS: Diverticulosis sigmoid,descending random biopsy ascending and descending. Retroflexed views revealed internal hemorrhoids and Retroflexed views revealed small internal hemorrhoids The scope was then completely withdrawn from the patient and the procedure terminated. PROCEDURE WITHDRAWAL TIME:6minutes ADVERSE EVENTS: There were no complications. IMPRESSIONS: 1. Diverticulosis sigmoid,descending random biopsy ascending and descending 2. Retroflexed views revealed internal hemorrhoids 3. Retroflexed views revealed small internal hemorrhoids 4. Revealed hemorrhoids RECOMMENDATIONS: 1. Await biopsy results. Biopsy results will not be ready for 7-10 days. If you don't hear from us in two weeks, call our office for results. 2. Probiotics from any [facility] or [employer] food store 3. Await biopsy results. Biopsy results will not be ready for 7-10 days. If you don't hear from us in two weeks, call our office for results. RECALL: Colonoscopy, pending biopsy results Trupti Francois MD eSigned: Trupti Francois MD 11/03/2016 2:28 PM cc:
[2016-11-03 14:40] VITALS: BP 163/94; PULSE 51; RESP 16; O2SAT 94
== END ==
LOC: HEND 12:00
PROVIDERS: ATTEND Internal Medicine Gastroenterology
DX: K21.0 Gastro-esophageal reflux disease with esophagitis (principal); K44.9 Diaphragmatic hernia without obstruction or gangrene; K52.9 Noninfective gastroenteritis and colitis, unspecified; K63.5 Polyp of colon; K57.30 Diverticulosis of large intestine without perforation or abscess without bleeding; K64.4 Residual hemorrhoidal skin tags; K64.8 Other hemorrhoids; D64.9 Anemia, unspecified
CPT/HCPCS: 88305